=== PATIENT | female | born 2005 | race Caucasian/White ===

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

== ENCOUNTER 2025-04-11 12:11 | Emergency (ER) | payer OTHER, SELFPAY ==
--- NOTE | 2025-04-11 | ECG_ITS ---
Test Reason : chest pain Blood Pressure : */* mmHG Vent. Rate : 80 BPM Atrial Rate : 80 BPM P-R Int : 128 ms QRS Dur : 82 ms QT Int : 360 ms P-R-T Axes : 47 62 42 degrees QTcB Int : 415 ms Normal sinus rhythm with sinus arrhythmia Normal ECG When compared with ECG of 02-Aug-2011 13:15, PREVIOUS ECG IS PRESENT Referred By: Generic ED Physician Electronically Signed By: JOVITA SMITH MD
--- NOTE | ~2025-04-11 | XR_ITS ---
EXAMINATION: XR CHEST CLINICAL INFORMATION: chest pain COMPARISON: None available. TECHNIQUE: 2 views of the chest were obtained. FINDINGS: The cardiac, hilar, and mediastinal contours are normal. The lungs are clear bilaterally. There is no pneumothorax or pleural effusion. There is no focal osseous or soft tissue abnormality. XR/XR chest 2V IMPRESSION: Normal chest. Electronically signed by: Morgan Ramirez MD 04/11/2025 01:18 PM EDT
[2025-04-11 12:16] VITALS: BP 118/64; PULSE 77; RESP 16; TEMP 36.7; O2SAT 100; BMI 39.1
--- NOTE | 2025-04-11 12:24 | ED_ITS ---
HPI - General Adult General Chief complaint: Chest Pain Stated complaint: Chest Pain Tightness X 1 Wk Related Data Previous Rx's ?Medication ?Instructions ?Recorded doxylamine succinate 25 mg tablet 25 mg PO BEDTIME PRN sleep #30 tabs 06/29/22 (Unisom (doxylamine)) pyridoxine (vitamin B6) 25 mg 25 mg PO TID #90 tabs 06/29/22 tablet vitamin with calcium 1 tab PO DAILY 90 days #90 tabs 07/13/22 no.72-iron 27 mg-folic acid 1 mg tablet ( Vitamins Plus Low Iron) aspirin 81 mg chewable tablet 162 mg (2 x 81 mg) PO DAILY #60 07/27/22 (Aspirin Childrens) tabs metronidazole 500 mg tablet 500 mg PO BID 7 days #14 tabs 08/14/22 blood sugar diagnostic (FreeStyle #150 ea 09/29/22 Lite Strips) lancets 28 gauge (FreeStyle #100 ea 09/29/22 Lancets) blood-glucose meter (FreeStyle #1 ea 10/08/22 [place] Lite kit) metronidazole 500 mg tablet 500 mg PO BID 7 days #14 tabs 10/19/22 methylprednisolone 4 mg tablets in 4 mg PO DAILY #21 ea 04/11/25 a dose pack (Medrol (Supa)) Allergies Allergy/AdvReac Type Severity Reaction Status Date / Time No Known Allergies Allergy Verified 04/11/25 17:16 [facility] Past Medical History Medical History Depression Obesity (BMI 30-39.9) Family History Family History Mother Anxiety Father Vasculitis determined by biopsy of nerve Maternal Grandmother Breast cancer Uterine cancer Maternal Grandfather Cardiac arrest Hx of diabetes mellitus Sister Family history of malignant neoplasm of breast in relative diagnosed when older than 45 years of age Social History Social History Household Members: Family Alcohol intake: never Patient Tobacco Use Status: Never used Tobacco Smoked in Last 30 Days: No Use of substances other than those prescribed or required for medical reasons: No Advance Directives: No Advance Directives Information Provided: Yes Do you have a plan to hurt others: No Plan Patient : No Physical Exam ED Vital Signs: BMI result Body Mass Index 39.1 Course Course Course Narrative: This is a rapid medical exam performed by Olayinka Funes NP: Additional HPI, ROS, PE not included below will be deferred to primary provider. Patient is a 20-year-old female presenting with complaint of chest tightness for the past week, worse on left, intermittent. One episode of vomiting this am. Not on OCPs, no recent travel, no recent calf pain/swelling, no known personal or family history of blood clots. Plan: EKG, labs, CXR, viral panel Medical Decision Making Lab Data 04/11/25 12:35 04/11/25 12:35 Labs: Lab Results 04/11/25 Range/Units 12:35 WBC 7.3 (4.8-10.8) X10*3/uL RBC 4.62 (4.20-5.50) X10*6/uL Hgb 11.5 L (12.0-16.0) g/dl Hct 36.1 L (37.0-47.0) % MCV 78.1 L (80.0-98.0) fL MCH 24.9 L (27.0-33.0) pg MCHC 31.9 (31.0-35.0) g/dl RDW 13.9 (11.0-16.0) % Plt Count 342 D (160-400) X10*3/uL MPV 9.7 (9.4-12.3) fL Immature Gran % (Auto) 0.3 (0.0-0.4) % Neut % (Auto) 64.4 (45-73) % Lymph % (Auto) 26.9 (20-40) % [place] % (Auto) 7.0 (2-11) % Eos % (Auto) 1.0 (0-4) % Baso % (Auto) 0.4 (0-2) % Lymph # (Auto) 2.0 (1.2-4.9) X10*3/uL [place] # (Auto) 0.5 (0.1-1.2) X10*3/uL Eos # (Auto) 0.1 (0.0-0.4) X10*3/uL Baso # (Auto) 0.0 (0.0-0.2) X10*3/uL Abs Immat Gran (auto) 0.02 (0.00-0.03) X10*3/uL Absolute Neuts (auto) 4.7 (2.0-8.3) x10*3/uL Absolute Nucleated RBC 0.000 (0.0-0.012) X10*3/uL Nucleated RBC % (auto) 0.0 (0.0-0.2) /100WBC PT 11.6 (10.9-12.4) SEC INR 1.0 (0.9-1.1) Sodium 143 (135-145) mmol/L Potassium 4.0 (3.3-5.1) mmol/L Chloride 108 (96-108) mmol/L Carbon Dioxide 28 (22-29) mmol/L Anion Gap 11 L (12-20) BUN 9 (9-16) mg/dL Creatinine 0.73 (0.5-1.4) mg/dL Estim Creat Clear Calc 183.4 Estimated GFR > 60 Random Glucose 92 (60-115) mg/dL Calcium 9.1 (8.4-10.2) mg/dL Total Bilirubin 0.3 (0.0-1.0) mg/dL AST 22 (5-31) U/L ALT 15 (0-31) U/L Alkaline Phosphatase 86 (39-117) U/L Troponin I High Sens < 2.7 (<3.5-17.0) ng/L Total Protein 7.3 (6.5-8.0) g/dL Albumin 4.0 (3.5-5.0) g/dL Beta HCG, Quant < 2 mIU/mL Influenza Type A (PCR) NEGATIVE (Negative) Influenza Type B (PCR) NEGATIVE (Negative) RSV RNA Qual (PCR) NEGATIVE (Negative) SARS-CoV-2 RNA (RT-PCR) NEGATIVE (Negative) Discharge Plan Discharge Patient Disposition: Left W/O Completing Treatment Prescriptions: No Action metronidazole 500 mg tablet 500 mg PO BID 7 Days Qty: 14 0RF Rx Instructions: Take with food, Avoid alcohol and vinegar products (DME) blood-glucose meter [FreeStyle [place] Lite] Kit See Rx Instructions .ROUTE .MEDSUPPLY Qty: 1 0RF Rx Instructions: use 4x day as directed metronidazole 500 mg tablet 500 mg PO BID 7 Days Qty: 14 0RF methylprednisolone [Medrol (Supa)] 4 mg tablets,dose pack 4 mg PO DAILY Qty: 21 0RF pyridoxine (vitamin B6) 25 mg tablet 25 mg PO TID Qty: 90 1RF Unisom (doxylamine) 25 mg tablet 25 mg PO BEDTIME PRN (Reason: sleep) Qty: 30 1RF Vitamin Plus Low Iron 27 mg iron- 1 mg tablet 1 tab PO DAILY 90 Days Qty: 90 2RF (DME) lancets [FreeStyle Lancets] 28 gauge misc See Rx Instructions .ROUTE .MEDSUPPLY Qty: 100 6RF Rx Instructions: four times as day (DME) FreeStyle Lite Strips Strip See Rx Instructions .ROUTE .MEDSUPPLY Qty: 150 6RF Rx Instructions: four times a day aspirin [Aspirin Childrens] 81 mg tablet,chewable 162 mg PO DAILY Qty: 60 7RF Rx Instructions: start 2 tabs daily at bedtime at 14-16weeks and continue daily until 2 weeks Discharge Date/Time: 04/11/25 15:41
[2025-04-11 12:41] LABS: Basophils Percent Auto 0.4 % (0-2); Eosinophils Absolute Auto 0.1 X10*3/uL (0.0-0.4); Hematocrit 36.1 % (37.0-47.0); Hemoglobin 11.5 g/dl (12.0-16.0); Imm Gran Abs Auto 0.02 X10*3/uL (0.00-0.03); Imm Gran Pct Auto 0.3 % (0.0-0.4); Lymphocytes Percent Auto 26.9 % (20-40); MANUAL DIFF FLAG NO; Mean Corpuscular HGB Conc 31.9 g/dl (31.0-35.0); Mean Corpuscular Hemoglobin 24.9 pg (27.0-33.0); Mean Corpuscular Volume 78.1 fL (80.0-98.0); Mean Platelet Volume 9.7 fL (9.4-12.3); Monocytes Absolute Auto 0.5 X10*3/uL (0.1-1.2); Neutrophils Absolute Auto 4.7 x10*3/uL (2.0-8.3); Neutrophils Percent Auto 64.4 % (45-73); Platelet Count 342 X10*3/uL (160-400); Red Blood Count 4.62 X10*6/uL (4.20-5.50); Red Cell Distribution Width 13.9 % (11.0-16.0); White Blood Count 7.3 X10*3/uL (4.8-10.8)
[2025-04-11 12:49] LABS: Prothrombin Time 11.6 SEC (10.9-12.4)
[2025-04-11 13:01] LABS: Alanine Aminotransferase 15 U/L (0-31); Alkaline Phosphatase 86 U/L (39-117); Anion Gap 11 (12-20); Aspartate Amino Transferase 22 U/L (5-31); Bilirubin Total 0.3 mg/dL (0.0-1.0); Blood Urea Nitrogen 9 mg/dL (9-16); Calcium 9.1 mg/dL (8.4-10.2); Carbon Dioxide 28 mmol/L (22-29); Chloride 108 mmol/L (96-108); Creatinine Clr Calc Pharmacy 183.4; Estimated Glomerular Filt Rate > 60; Glucose Random 92 mg/dL (60-115); Sodium 143 mmol/L (135-145); Total Protein 7.3 g/dL (6.5-8.0)
[2025-04-11 13:03] LABS: HCG Quantitative < 2 mIU/mL; Troponin-I High Sensitivity < 2.7 ng/L (<3.5-17.0)
[2025-04-11 13:29] LABS: Influenza A PCR NEGATIVE (Negative); Influenza B PCR NEGATIVE (Negative); Resp Syncy Virus RNA Qual PCR NEGATIVE (Negative); SARS COV2 PCR INHOUSE NEGATIVE (Negative)
--- OUTSIDE RECORDS SUMMARY | 2025-04-11 15:32 | XMS_ITS | Encounter Summary ---
Author Organization [employer] Address [address] [place] [address] Care Team Providers Care Dye Box Operator Name Role Phone Rita Campbell MD Primary Care Provider [phone] Reason for Visit * Reason Onset Date Comments Hospital Follow-up 04/11/2025 Encounter Details Date Type Department Care Team ([facility] st Contact Info) Description 04/11/2025 Telephone Adult Medicine [address] [phone] Kim Charlton MA Hospital Follow-up Social History Tobacco Use Types Packs/Day Years Used Date Smoking Tobacco: Never Smokeless Tobacco: Never Alcohol Use Standard Drinks/Week Comments No 0 (1 standard drink = 0.6 oz pur e alcohol) Comments Unknown Sex and Gender Information Value Date Recorded Sex Assigned at Not on file Legal Sex Female 4:55 AM EST Gender Identity Not on file Sexual Orientation Not on file documented as of this encounter Progress Notes * Kim Charlton MA - 04/11/2025 2:53 PM EDT Hospital/ER follow up appointment needed Hospital patient was treated at: [facility] Was this only an ER visit or was the patient admitted to the hospital? ER Visit only Date of visit if ER visit only: 04/11/25 If patient was admitted what was the date of discharge? Reason/diagnosis for visit or stay: CHEST PAIN DUE TO VAPING. When was the patient told to follow up? [facility] Was visit or stay related to an injury? If yes, what was the date of injury (DOI)? No If yes, was the injury due to: Not 3rd constitution party related documented in this encounter Plan of Treatment Upcoming Encounters Date Type Department Care Team (Late st Contact Info) Description 06/22/2025 11:00 AM EDT Office Visit Adult Medicine [address] [phone] Rita Campbell MD [address] [place] [address] documented as of this encounter Visit Diagnoses Not on filedocumented in this encounter Care Teams Dye Box Operator Relationship Specialty Start Date End Date Rita Campbell MD [address] [place] [id number] PCP - General 12/06/23 documented as of this encounter
--- OUTSIDE RECORDS SUMMARY | 2025-04-11 15:32 | XMS_ITS | Clinical Summary ---
Author Organization [facility] Address [address] [place] [phone] Phone Care Team Providers Care Correspondence Dictator Name Role Phone Unavailable Primary Care Provider Unavailabl e Immunizations Immunization Administration Dates Next Due DTaP 5 09/16/2004,2003,2003 ,2003 Hep B, ped/adol 2003,2003,2003 Hib (HbOC) 07/02/2004 Hib (PRP-T) 2003,2003,2003 IPV 2003,2003,2003 MMR 03/24/2004 Pneumococcal Conjugate 09/16/2004,2003,,2003 Varicella 03/24/2004 Family History Relation Name Status Comments Father Alive Father: Alive a nd well Maternal Grandfather Materna l grandfather: Diabetes mellitus, heart attack, Maternal Grandmother Materna l grandmother: Cancer -breast Mother Alive Mother: Alive a nd well Paternal Grandmother Paterna l grandmother: HIV, Sister Alive Sister: Alive a nd well Social History Tobacco Use Types Packs/Day Years Used Date Smoking Tobacco: Never Assessed Comments Unknown Sex and Gender Information Value Date Recorded Sex Assigned at Not on file Legal Sex Female 4:12 PM EDT Gender Identity Not on file Sexual Orientation Not on file Plan of Treatment Health Maintenance Due Date Last Done Comments IPV Vaccines (4 of 4 - 4-dose series) 2007 2003, 2003, 2003 Varicella Vaccines (2 of 2 - 2-dose childhood series) 2007 03/24/2004 DTaP,Tdap,and Td Vaccines (5 - Tdap) 2014 09/16/2004, 2003, 2003, Additional history exists HPV Vaccines (1 - 3-dose series) 2018 Men B Vaccine (1 of 2 - Standard) 2019 Influenza Vaccines (#1) 2024 COVID-19 Vaccine ( - 2023-) 07/30/2024 Hepatitis B Vaccines Completed 2003, 2003, 2003 MMR Vaccines Completed 03/24/2004 HIB Vaccines Completed 07/02/2004, 08/30, 2003, Additional history exists Pneumococcal Vaccine Completed 09/16/2004, 2003, 2003, Additional history exists Hepatitis A Vaccines Aged Out No long er eligible based on patient's age to complete this topic Meningococcal Vaccine Aged Out No reid reggie eligible based on patient's age to complete this topic
--- OUTSIDE RECORDS SUMMARY | 2025-04-11 15:32 | XMS_ITS | Clinical Summary ---
Author Organization [address] Address [address] [place] [phone] Phone Care Team Providers Care Workday Manager Name Role Phone Rita Campbell MD Primary Care Provider [phone] Allergies No known active allergies Medications albuterol HFA (PROAIR HFA ; PROVENTIL HFA ; VENTOLIN HFA) 90 mcg/actuation inhaler INHALE 2 PUFFS INTO THE LUNGS EVERY 4 HOURS NEEDED FOR COUGH, WHEEZING OR SHORTNESS OF BREATH. 9 Active buPROPion (WELLBUTRIN) 75 mg tablet Take 1 tablet (75 mg total) by mouth. 9 Active cetirizine (ZyrTEC) 10 mg tablet Take 1 tablet (10 mg total) by mouth 1 (one) time each day. 1 Active desogestreL-eth inyl estradioL (Apri) 0.15-0.03 mg per tablet Take 1 tablet by mouth 1 (one) time each day. 2 Active ferrous sulfate 325 mg (65 mg elemental iron) tablet Take 1 tablet (325 mg total) by mouth 1 (one) time each day. 0 Active fluticasone furoate (Arnuity Ellipta) 100 mcg/actuation blister with device inhaler Inhale 1 puff. 9 Active fluticasone propionate (FLONASE) 50 mcg/actuation nasal spray Administer 1 spray into affected nostril(s). 1 Active reservoir inhalation (INSPIREASE) device USE WITH INHALER 2 Active sertraline (ZOLOFT) 50 mg tablet TAKE 1 TABLET BY MOUTH EVERY DAY 90 tablet 1 5 Active cyclobenzaprine (FLEXERIL) 10 mg tablet Take 1 tablet (10 mg total) by mouth at bedtime as needed for muscle spasms. 30 tablet 5 Active naproxen (EC NAPROSYN) 375 mg EC tablet Take 1 tablet (375 mg total) by mouth 2 (two) times a day. 60 tablet 5 Active Active Problems Problem Noted Date Diagnosed Date Right ureteral calculus 05/23/2019 Overview (02/04/2024): 05/15/19: seen at [facility] pelvis and abdomen showed 0.3 cm calculus right pelvis given marcobid for proteus UTI and follow up with urology 07/17: renal ultrasound no hydronephrosis and no obvious sign of stone. 24 hour urine collection and nephrology Elevated cholesterol 02/26/2019 Depression 06/09/2018 Overview (02/04/2024): Therapist Chaya Morales, [facility] [phone] 09/16: therapist Brigida Dean [facility] Behavior problem in child 04/01/2017 Orthostatic syncope 06/29/2013 Overview (02/04/2024): seen by Dr. Sanchez, cardiology Seasonal allergies 03/18/2012 Overview (02/04/2024): Last Assessment & Plan: Will start on Claritin and Flonase Encounters Date Type Department Care Team Description 04/11/2025 Telephone Adult Medicine [address] [phone] Kim [facility] Follow-up 01/26/2025 9:30 AM EST Office Visit Adult Medicine [address] [phone] Seamus Hanson MD Lumbosacral strain, initial encounter (Primary Dx) 01/26/2025 Telephone Adult Medicine [address] [phone] Rita Campbell MD Back Pain from Last 3 Months Immunizations Name Administration Dates Next Due DTaP (Infanrix) 6wks to less than 7yo ,09/16/2004,2003,05/28,2003 DTaP 5 pertussis antigens, D iptheria Tetanus acellular pertussis (Daptacel) 6wks to less than 7yo 09/16/2004,2003,2003,05/28 XMsR-BAF-IUM (Pentacel) 2mo to less than 5yo 09/16/2004,2003,2003,05/28 HPV 9-valent (Gardisil) 9yo to less than 46yo 04/01/2017,01/23/2016,10/21/2015 Hepatitis B Pediatric (Enger ix B; Recombivax HB) to less than 20 yo 2003,2003,2003 HiB PRP-T conjugate (Acthib, Hiberix) 6wks and older 2003,2003,2003 Hib (HbOC) 07/02/2004 IPV Inactivated polio (Ipol) 6wks and older 07/04/2008,2003,2003,05/28 Influenza trivalent, with pr eservative (Fluzone; Afluria) 6mo and older 08/19/2020,09/21/2018,09/11/2013,08/08,07/25/2010,11/26/2009 MMR, measles mumps and rubel la Live (Priorix; M-M-R II) 12mo and older 06/29/2007,03/24/2004 Meningococcal MCV4P 09/12/2019,08/24/2014 Pneumococcal Conjugate Vacci ne, 7 Valent 09/16/2004,2003,2003,05/28 Tdap Tetanus diptheria acell ular pertussis (Boostrix; Adacel) 7yo and older 08/24/2014 Varicella live (Varivax) 12m o and older 06/29/2007,03/24/2004 Surgical History Surgery Date Site/Laterality Comments MULTIPLE TOOTH EXTRACTIONS 11/29/2007 PROCEDURE: HISTORICAL DENTAL EXTRACTION TONSILLECTOMY 01/27/2011 PROCEDURE: HISTORICAL TONSILLECTOMY CHOLECYSTECTOMY 01/2024 PROCEDURE: HISTORICAL CHOLECYSTECTOMY Medical History Medical History Date Comments Overweight(278.02) DX:Overweight (278.02) Tonsillar hypertrophy DX:Tonsill ar hypertrophy; COMMENT: seen by ENT, observe for now, no apnea, seen again 02/06 tonsillectomy Streptococcal pharyngitis 02/05, 01/09 * 2 DX:Str eptococcal pharyngitis Greenstick fracture of lower leg 02/24/10 DX:Greenstick fracture of lower leg; COMMENT: greenstick fracture left wrist Syncopal episodes 08/09, 07/11 * 2 DX:Syncopal ep isodes; COMMENT: neg CT scan Disturbance of sleep 07/08 DX:Disturba nce of sleep Unspecified family circumstance 07/08 DX:Unspecified family circumstance; COMMENT: case closed Orthostatic syncope 06/2013 DX:Orthostat ic syncope; COMMENT: seen by Dr. Sanchez, cardiology Childhood obesity 03/20/2013 DX:Childhood o besity; COMMENT: Component Value Date CHOL 206 08/24/2014 Family History Medical History Relation Name Comments Nephrolithiasis Father Other: polyarteritis nodosum Father Diabetes Maternal Grandfather Breast cancer Maternal Grandmother Hypertension Maternal Grandmother Seizures Mother Asthma Other Maternal Side Relation Name Status Comments Brother Alive Father Alive Maternal Grandfather Maternal Grandmother Mother Alive Other Sister Alive Social History Tobacco Use Types Packs/Day Years Used Date Smoking Tobacco: Never Smokeless Tobacco: Never Alcohol Use Standard Drinks/Week Comments No 0 (1 standard drink = 0.6 oz pur e alcohol) Comments Unknown Sex and Gender Information Value Date Recorded Sex Assigned at Not on file Legal Sex Female 4:55 AM EST Gender Identity Not on file Sexual Orientation Not on file Obstetrics History Last Filed Vital Signs Vital Sign Reading Time Taken Comments Blood Pressure 112/74 01/26/2025 9:34 AM EST Pulse 80 01/26/2025 9:34 AM EST Temperature 36.4 ??C (97.6 ??F) 01/26/2025 9:34 AM ES T Respiratory Rate 16 01/26/2025 9:34 AM EST Oxygen Saturation 98% 01/26/2025 9:34 AM EST Inhaled Oxygen Concentration - - Weight 132 kg (290 lb) 01/26/2025 9:34 AM EST Height 182.2 cm (5' 11.75 ) 01/26/2025 9:[address] Body Mass Index 39.61 01/26/2025 9:34 AM EST Plan of Treatment Upcoming Encounters Date Type Department Care Team (Late st Contact Info) Description 06/22/2025 11:00 AM EDT Office Visit Adult Medicine [address] [phone] Rita Campbell MD [address] [place] [id number] Health Maintenance Due Date Last Done Comments Meningococcal B Vaccine (1 of 2 - Standard) 2019 Gonorrhea/Chlamydia Screening 09/12/2020 09/12/2019 Depression Screening 11/01/2022 09/14/2019 HIV Screening 11/01/2022 Hepatitis C Screening 11/01/2022 Social Influencers of Health Screening 11/01/2022 09/12/2019 Cervical Cancer Screening: Pap Smear 2024 COVID-19 Vaccine ( season) 2024 01/12/2023, 04/04/2021, 03/21/2021 Hypertension/CHF/CAD Annual BMP Blood Test 06/23/2025 06/23/2024 Cholesterol Screening (Lipid Panel) 06/23/2029 06/23/2024, 06/14/2018 DTaP,Tdap,and Td Vaccines (8 - Td or Tdap) 10/29/2032 10/29/2022, 08/24/2014, 07/04/2008, Additional history exists Hepatitis B Vaccines Completed 2003, 2003, 2003 HIB Vaccines Completed 09/16/2004, 08/29, 07/02/2004, Additional history exists Pneumococcal Vaccine: Pediatrics (0 to 5 Years) and At-Risk Patients (6 to 64 Years) Completed 09/16/2004, 2003, 2003, Additional history exists MMR Vaccines Completed 06/29/2007, 03/24/2004 Varicella Vaccines Completed 06/29/2007, 03/24/2004 IPV Vaccines Completed 07/04/2008, 08/29, 2003, Additional history exists HPV Vaccines Completed 04/01/2017, 02/2017, 01/23/2016, Additional history exists Meningococcal ACWY Vaccine Completed 09/12/2019, Influenza Vaccine Completed 08/23/2024, , 08/19/2020, Additional history exists Hepatitis A Vaccines Aged Out No long er eligible based on patient's age to complete this topic RSV Immunization Patients Under 20 months Aged Out No longer eligible based on patient's age to complete this topic Insurance [facility] Care Teams Workday Manager Relationship Specialty Start Date End Date Rita Campbell MD [address] [place] [phone] PCP - General 12/06/23
--- OUTSIDE RECORDS SUMMARY | 2025-04-11 15:32 | XMS_ITS | Encounter Summary ---
Author Organization [facility] Address [address] [place] [phone] Phone Care Team Providers Care Ict Support Technicians Name Role Phone Unavailable Primary Care Provider Unavailabl e Encounter Details Date Type Department Care Team (Late st Contact Info) Description 07/15/2017 Conversion Encounter [facility] - [address] [phone] Social History Tobacco Use Types Packs/Day Years Used Date Smoking Tobacco: Never Assessed Comments Unknown Sex and Gender Information Value Date Recorded Sex Assigned at Not on file Legal Sex Female 4:12 PM EDT Gender Identity Not on file Sexual Orientation Not on file documented as of this encounter Plan of Treatment Not on file documented as of this encounter Visit Diagnoses Not on filedocumented in this encounter
== END 2025-04-11 15:41 | disposition left against medical advice (07) ==
PROVIDERS: Registered Nurse Emergency; Emergency Provider Emergency Medicine
DX: R07.89 Other chest pain (principal); Z79.899 Other long term (current) drug therapy; Z03.818 Encounter for observation for suspected exposure to other biological agents ruled out
CPT/HCPCS: 0241U; 71046; 80053; 84484; 84702; 85025; 85610; 93005; 99283

== ENCOUNTER → 2025-04-11 12:16 | Outpatient (BNV) | payer OTHER, SELFPAY | PROVIDERS: Emergency Provider Emergency Medicine; Visit Provider Internal Medicine Cardiovascular Disease | DX: R07.9 Chest pain, unspecified (principal) | CPT/HCPCS: 93010 ==

== ENCOUNTER → 2025-04-11 12:25 | Outpatient (BNV) | payer OTHER, SELFPAY | PROVIDERS: Visit Provider Radiology Diagnostic Radiology | DX: R07.89 Other chest pain (principal) | CPT/HCPCS: 71046 ==

== ENCOUNTER 2025-04-11 16:59 | Emergency (ER) | payer OTHER, SELFPAY ==
--- NOTE | 2025-04-11 17:02 | ECG_ITS ---
Test Reason : CHEST PAIN Blood Pressure : */* mmHG Vent. Rate : 79 BPM Atrial Rate : 79 BPM P-R Int : 140 ms QRS Dur : 86 ms QT Int : 364 ms P-R-T Axes : 47 57 26 degrees QTcB Int : 417 ms Sinus rhythm with marked sinus arrhythmia Otherwise normal ECG When compared with ECG of 11-Apr-2025 12:16, No significant change was found Referred By: Bhavya Funes Electronically Signed By: JOVITA SMITH MD
[2025-04-11 17:11] VITALS: BP 135/64; PULSE 69; RESP 19; TEMP 36.6; O2SAT 99; BMI 38.9
--- NOTE | 2025-04-11 17:14 | ED_ITS ---
HPI - Chest Pain General Chief Complaint: Chest Pain Stated Complaint: Chest pain/here earlier today but left Time Seen by Provider: 04/11/25 18:01 History of Present Illness ED Provider: HPI narrative: 20-year-old female without significant medical problems, she does vape, was seen in emergency department earlier today with chest pain has been going on for the past 5 days, states worse when she takes a deep breath it is left-sided nonradiating not associated nausea vomiting or diaphoresis, she had full workup when home in still having chest pain symptoms speaking concerned and came back to the ER. No fevers or chills reported no cough no hemoptysis I did not elicit any PE risk factors. She is here with her . Related Data Previous Rx's ?Medication ?Instructions ?Recorded doxylamine succinate 25 mg tablet 25 mg PO BEDTIME PRN sleep #30 tabs 06/29/22 (Unisom (doxylamine)) pyridoxine (vitamin B6) 25 mg 25 mg PO TID #90 tabs 06/29/22 tablet vitamin with calcium 1 tab PO DAILY 90 days #90 tabs 07/13/22 no.72-iron 27 mg-folic acid 1 mg tablet ( Vitamins Plus Low Iron) aspirin 81 mg chewable tablet 162 mg (2 x 81 mg) PO DAILY #60 07/27/22 (Aspirin Childrens) tabs metronidazole 500 mg tablet 500 mg PO BID 7 days #14 tabs 08/14/22 blood sugar diagnostic (FreeStyle #150 ea 09/29/22 Lite Strips) lancets 28 gauge (FreeStyle #100 ea 09/29/22 Lancets) blood-glucose meter (FreeStyle #1 ea 10/08/22 [place] Lite kit) metronidazole 500 mg tablet 500 mg PO BID 7 days #14 tabs 10/19/22 methylprednisolone 4 mg tablets in 4 mg PO DAILY #21 ea 04/11/25 a dose pack (Medrol (Supa)) Allergies Allergy/AdvReac Type Severity Reaction Status Date / Time No Known Allergies Allergy Verified 04/11/25 17:16 Review of Systems Constitutional: Constitutional: Reports as per [facility] Past Medical History Medical History Depression Obesity (BMI 30-39.9) Family History Family History Mother Anxiety Father Vasculitis determined by biopsy of nerve Maternal Grandmother Breast cancer Uterine cancer Maternal Grandfather Cardiac arrest Hx of diabetes mellitus Sister Family history of malignant neoplasm of breast in relative diagnosed when older than 45 years of age Social History Social History Household Members: Family Alcohol intake: never Patient Tobacco Use Status: Never used Tobacco Smoked in Last 30 Days: No Use of substances other than those prescribed or required for medical reasons: No Advance Directives: No Advance Directives Information Provided: Yes Do you have a plan to hurt others: No Plan Patient : No Physical Exam Vital Signs: Vital Signs: Last Vital Signs Temp 98 F 04/11/25 17:11 Pulse 69 04/11/25 17:11 Resp 19 04/11/25 17:11 BP 135/64 04/11/25 17:11 Pulse Ox 99 04/11/25 17:11 O2 Del Method Room Air 04/11/25 17:11 BMI result Body Mass Index 38.9 Const: Other: * Gen: ?Overall well-appearing patient * Neck: Supple, no LAD * CV: RRR, no obvious murmurs appreciated * Resp: ?No wheezing rales rhonchi no stridor moving air well * Abd: ?Bowel sounds are present, no tenderness no rebound no rigidity * MSK: FROM, strength 5/5 all extremities, no edema of the lower extremities noted * Skin: Warm, dry, intact, * Neuro: ?Alert and oriented x3, moving upper and lower extremities symmetrically, no obvious facial asymmetry noted Course Course Course Narrative: This is a rapid medical exam performed by Olayinka Funes NP: Additional HPI, ROS, PE not included below will be deferred to primary provider. Patient is a 20-year-old female presenting with complaint of chest tightness for the past week, worse on left, intermittent. One episode of vomiting this am. Not on OCPs, no recent travel, no recent calf pain/swelling, no known personal or family history of blood clots. Patient was in the department earlier today but left due to feeling better . She states she went home and started to feel worse prompting her to return to the ED. Plan: EKG Medical Decision Making Medical Decision Making [facility] Narrative: I reviewed patient's prior workup she has had no evidence for ACS, unremarkable chest x-ray without pneumonia, pneumothorax, or subcutaneous emphysema to suspect Boerhaave syndrome, her blood work and cardiac enzymes have been reassuring, we did discuss vaping, I did discuss with her that this may be costochondritis, I did not feel that this is related to aortic dissection as this is going for the past 1 week she is not significantly hypertensive pulses equal bilateral upper extremities, I will obtain a D-dimer as she may have a pleuritic component to her symptoms, after that anticipate discharging on anti- inflammatories or few days of steroids. Lab Data [facility] Lab Attestation statement: I reviewed the patient's lab results. (I reviewed patient's prior workup which included blood work, chest x-ray EKG) Labs: Lab Results 04/11/25 Range/Units 19:08 D-Dimer High Sensitivty < 150 NG/ML Independent Interpretation I performed an independent interpretation of an: EKG (79 BPM, otherwise normal ECG without dysrhythmia, AV vicenta blocks or ST-T changes to suspect underlying ACS, my independent interpretation) Discharge Plan Discharge Clinical Impression: Chest pain, precordial Patient Disposition: Home, Self-Care Additional Instructions: Diagnosis and Initial Evaluation: You have been evaluated in the Emergency Department (ED) for chest pain. Based on your clinical assessment, electrocardiogram (ECG), and high-sensitivity cardiac troponin (hs-cTn) levels, you have been classified as low-risk for acute coronary syndrome (ACS) and myocardial infarction (DC). This means that your likelihood of having a heart attack or other serious heart condition in the next 30 days is very low. And on your return visit I obtained a D-dimer that was completely unremarkable which essentially excludes a blood clot, as I discussed with the suspect his symptoms are related to costochondritis, please quit vaping as you may be developing what is called pleurisy or formation of the pleural lining from vaping, I am going to start you on steroids, 1st dose in the ER, continue steroids starting tomorrow, any other issues concerns, back to the ER otherwise follow-up with your PCP, see my general discharge instructions as below Follow-Up Care: ? Primary Care Provider (PCP) or Net Developer Architect: It is important to follow up with your primary care provider or chief operating engineer within the next 14 to 30 days. This follow-up is crucial to ensure that any underlying conditions are managed appropriately and to discuss any further testing that may be needed. ? Notification: If you have an established PCP or chief operating engineer, they have been notified of your ED visit to facilitate continuity of care. Self-Care and Monitoring: ? Medications: Continue taking any prescribed medications as directed. If you have been given new medications, ensure you understand how and when to take them. ? Activity: Resume normal activities as tolerated. Avoid strenuous activities until you have discussed them with your healthcare provider. ? Diet: Maintain a heart-healthy diet, low in saturated fats, cholesterol, and sodium. Red Flags: Seek immediate medical attention if you experience any of the following: ? New or worsening chest pain ? Shortness of breath ? Dizziness or fainting ? Pain radiating to your arm, neck, or jaw ? Sweating, nausea, or vomiting Additional Testing: In some cases, outpatient testing such as a stress test or imaging may be recommended to further evaluate your heart health. Your follow-up provider will discuss this with you if necessary. Mental Health: Anxiety and stress can contribute to chest pain. Consider discussing any concerns with your healthcare provider, who may recommend screening for anxiety or depression and appropriate management strategies. Contact Information: If you have any questions or concerns before your follow-up appointment, please contact your healthcare provider or the ED where you were evaluated. Summary: You have been discharged from the ED with a low risk of serious heart conditions. Follow the instructions above, attend your follow-up appointments, and seek immediate care if you experience any red flags. Prescriptions: New methylprednisolone [Medrol (Supa)] 4 mg tablets,dose pack 4 mg PO DAILY Qty: 21 0RF No Action metronidazole 500 mg tablet 500 mg PO BID 7 Days Qty: 14 0RF Rx Instructions: Take with food, Avoid alcohol and vinegar products (DME) blood-glucose meter [FreeStyle [place] Lite] Kit See Rx Instructions .ROUTE .MEDSUPPLY Qty: 1 0RF Rx Instructions: use 4x day as directed metronidazole 500 mg tablet 500 mg PO BID 7 Days Qty: 14 0RF pyridoxine (vitamin B6) 25 mg tablet 25 mg PO TID Qty: 90 1RF Unisom (doxylamine) 25 mg tablet 25 mg PO BEDTIME PRN (Reason: sleep) Qty: 30 1RF Vitamin Plus Low Iron 27 mg iron- 1 mg tablet 1 tab PO DAILY 90 Days Qty: 90 2RF (DME) lancets [FreeStyle Lancets] 28 gauge misc See Rx Instructions .ROUTE .MEDSUPPLY Qty: 100 6RF Rx Instructions: four times as day (DME) FreeStyle Lite Strips Strip See Rx Instructions .ROUTE .MEDSUPPLY Qty: 150 6RF Rx Instructions: four times a day aspirin [Aspirin Childrens] 81 mg tablet,chewable 162 mg PO DAILY Qty: 60 7RF Rx Instructions: start 2 tabs daily at bedtime at 14-16weeks and continue daily until 2 weeks Print Language: East Timorese
--- OUTSIDE RECORDS SUMMARY | 2025-04-11 18:14 | XMS_ITS | Encounter Summary ---
Author Organization [facility] Address [address] [facility] [place] [address] Care Team Providers Care Chemist Biological Name Role Phone Jewell Chacon MD Primary Care Provider Unavailab Rita Rice MD Primary Care Provider [phone] Reason for Visit * Reason Onset Date Comments Michael Smith 07/09/2013 Encounter Details Date Type Department Care Team Description 07/09/2013 Telephone [facility]s Ur[facility] [address] [facility] [place] [address] Jewell Chacon MD Faintsreedhar Spell Social History Tobacco Use Types Packs/Day Years Used Date Smoking Tobacco: Never Smokeless Tobacco: Never Comments:mom and dad smoke o utside Alcohol Use Standard Drinks/Week Comments Not Asked 0 (1 standard drink = 0.6 oz pur e alcohol) Sex Assigned at Date Recorded Not on file documented as of this encounter Miscellaneous Notes * Telephone Encounter - Aylin FoleyPNicholNNichol - 07/09/2013 3:12 PM EDT Left message on answering machine call susy, was sent to er by bsr * Telephone Encounter - Emily Grace - 07/09/2013 2:58 PM EDT Symptoms patient is presenting: passed out twice, lips are blue, pupils are dilated How long has patient had these symptoms?: just happened PCP: Jewell Chacon [facility] Plan: FFS HMO $0 [place] [id number] Product Type: MEDICAID RISK PATIENT WAS SENT TO ER documented in this encounter Plan of Treatment Not on file documented as of this encounter Visit Diagnoses Not on filedocumented in this encounter Care Teams Chemist Biological Relationship Specialty Start Date End Date Jewell Chacon MD PCP - General 11/09/06 12/05/23 Rita Campbell MD [address] [place] [id number] PCP - General Internal Medicine 12/06/23 documented as of this encounter
--- OUTSIDE RECORDS SUMMARY | 2025-04-11 18:14 | XMS_ITS | Encounter Summary ---
Author Organization [facility] Address [address] [facility] [place] [address] Care Team Providers Care Flash Ranging Crewmember Name Role Phone Jewell Chacon MD Primary Care Provider Unavailab Rita Rice MD Primary Care Provider [phone] Reason for Visit * Reason Comments E-prescribe Rx Request Encounter Details Date Type Department Care Team Description 03/29/2018 Refill Pediatrics - [place] [address] [place] [address] Nunu Middleton NP [address] [place] [address] E-prescribe Rx Request Social History Tobacco Use Types Packs/Day Years Used Date Smoking Tobacco: Never Smokeless Tobacco: Never Comments:mom and dad smoke o utside Alcohol Use Standard Drinks/Week Comments No 0 (1 standard drink = 0.6 oz pur e alcohol) Sex Assigned at Date Recorded Not on file documented as of this encounter Miscellaneous Notes * Telephone Encounter - Kay Hoffman - 03/29/2018 8:29 AM EDT When was patients last PE/WCC? 04/01/17 When is patients next PE/WCC scheduled? 04/04/18 Jewell Chacon RX REQUEST WHEN MED IS ON THE LIST: All of the medications requested were on the CURRENT MEDS list Did you check the Pharmacy information above?: YES Indicate how soon the patient needs the script: SHARON Patient would like script to be: E-PRESCRIBED/FAXED TO PHARMACY Is the doctor here today?: NO Can the message wait until the doctor returns?: NO Has the patient been told that the prescription will not be filled until the end of the day? NO Jewell Chacon [place] / [place] / Product Type: [place]ID [id number] documented in this encounter Plan of Treatment Not on file documented as of this encounter Visit Diagnoses Not on filedocumented in this encounter Care Teams Flash Ranging Crewmember Relationship Specialty Start Date End Date Jewell Chacon MD PCP - General 11/09/06 12/05/23 Rita Campbell MD [address] [place] [id number] PCP - General Internal Medicine 12/06/23 documented as of this encounter
--- OUTSIDE RECORDS SUMMARY | 2025-04-11 18:14 | XMS_ITS | Encounter Summary ---
Author Organization [facility] Address [address] [place] [address] Care Team Providers Care Wood Barker Name Role Phone Rita Campbell MD Primary Care Provider [phone] Reason for Visit * Reason Onset Date Comments Hospital Follow-up 04/11/2025 Encounter Details Date Type Department Care Team (Late st Contact Info) Description 04/11/2025 Telephone Adult Medicine [address] [address] [place] Hospital Follow-up Social History Tobacco Use [...] as of this encounter Progress Notes * Sara Robertson RN - 04/11/2025 4:07 PM EDT Called pt er fu for 04/17 with careteam * Sri Fournier - 04/11/2025 3:53 PM EDT Patient returning phone call * Sara Robertson RN - 04/11/2025 3:45 PM EDT Called pt left vm to return call this is an er fu only * Kim Charlton MA - 04/11/2025 2:53 PM EDT Hospital/ER follow up appointment needed Hospital patient was treated at: [facility] Was this only an ER visit [...] was the injury due to: Not 3rd democrat related documented in this encounter Plan of Treatment Upcoming Encounters Date Type Department Care Team (Late st Contact Info) Description 04/17/2025 10:00 AM EDT Office Visit Adult Medicine [address] [phone] Hayden Mayer PA [address] [place] [address] 06/22/2025 11:00 AM EDT Office Visit Adult [address] [phone] Rita Campbell MD [address] [place] [address] documented as of this encounter Visit Diagnoses Not on filedocumented in this encounter Care Teams Wood Barker Relationship Specialty Start Date End Date Rita Campbell MD [address] [place] [address] PCP - General 12/06/23 documented as of this encounter
--- OUTSIDE RECORDS SUMMARY | 2025-04-11 18:14 | XMS_ITS | Clinical Summary ---
Author Organization [facility] Address [address] [place] [address] Phone Care Team Providers Care Food Specialist Name Role Phone Unavailable Primary Care Provider [...]
--- OUTSIDE RECORDS SUMMARY | 2025-04-11 18:14 | XMS_ITS | Encounter Summary ---
Author Organization [facility] Address [address] [place] [address] Phone Care Team Providers Care Fringing Machine Operator Name Role Phone Unavailable Primary Care Provider Unavailabl e Encounter Details Date Type Department Care Team (Late st Contact Info) Description 07/15/2017 Conversion Encounter [facility] - [address] [address] Social History Tobacco Use Types Packs/Day Years [...]
--- OUTSIDE RECORDS SUMMARY | 2025-04-11 18:14 | XMS_ITS | Clinical Summary ---
Author Organization [address] Address [address] [place] [phone] Phone Care Team Providers Care Information Systems Auditor Name Role Phone Rita Campbell MD Primary Care Provider [phone] Allergies No known active allergies Medications albuterol [...] calculus 05/23/2019 Overview (02/04/2024): 05/15/19: seen at [facility] pelvis and abdomen showed 0.3 cm calculus right pelvis given marcobid for proteus UTI and follow up with urology 07/17: renal ultrasound no hydronephrosis and no obvious sign of stone. 24 hour urine collection and nephrology Elevated cholesterol 02/26/2019 Depression 06/09/2018 Overview (02/04/2024): Therapist Chaya Morales, [facility] [phone] 09/16: therapist Brigida Dean [facility] Behavior problem in child 04/01/2017 Orthostatic syncope 06/29/2013 Overview (02/04/2024): seen by Dr. Sanchez, cardiology Seasonal allergies 03/18/2012 Overview (02/04/2024): Last Assessment & Plan: Will start on Claritin and Flonase Encounters Date Type Department Care Team Description 04/11/2025 Telephone Adult Medicine [address] [phone] Kim Charlton [place] Hospital Follow-up 01/26/2025 9:30 AM EST Office Visit Adult Medicine [address] [phone] Seamus Hanson MD Lumbosacral strain, initial encounter (Primary Dx) 01/26/2025 Telephone Adult Medicine [address] [phone] Rita Campbell MD Back Pain from Last 3 Months Immunizations Name Administration Dates Next Due DTaP (Infanrix) 6wks to less than 7yo ,09/16/2004,2003,05/28,2003 DTaP 5 pertussis antigens, D iptheria Tetanus acellular pertussis (Daptacel) 6wks to less than 7yo 09/16/2004,2003,2003,05/28 [id number] (Pentacel) 2mo to less than 5yo 09/16/2004,2003,2003,05/28 [...] 10:00 AM EDT Office Visit Adult Medicine [address] [phone] Hayden Mayer PA [address] [place] [address] 06/22/2025 11:00 AM EDT Office Visit Adult [address] [phone] Rita Campbell MD [address] [place] [address] Health Maintenance Due Date Last Done Comments [...] patient's age to complete this topic Insurance [facility] Care Teams Information Systems Auditor Relationship Specialty Start Date End Date Rita Campbell MD [address] [place] [address] [facility] - General 12/06/23
--- OUTSIDE RECORDS SUMMARY | 2025-04-11 18:14 | XMS_ITS | Encounter Summary ---
Author Organization [facility] Address [address] [facility] [place] [address] Care Team Providers Care Director Of Analytical Development Name Role Phone Jewell Chacon MD Primary Care Provider Unavailab Rita Rice MD Primary Care Provider [phone] Reason for Visit * Reason Comments E-prescribe Rx Request Encounter Details Date Type Department Care Team Description 07/15/2015 Refill Pediatrics - [address] [address] Jewell Chacon MD E-prescribe Rx Request Social History Tobacco Use Types Packs/Day Years Used Date Smoking Tobacco: Never Smokeless Tobacco: Never Comments:mom and dad smoke o utside Alcohol Use Standard Drinks/Week Comments Not Asked 0 (1 standard drink = 0.6 oz pur e alcohol) Sex Assigned at Date Recorded Not on file documented as of this encounter Miscellaneous Notes * Telephone Encounter - Xiomy Long L.P.N. - 07/15/2015 9:13 AM EDT PCP out of office. * Telephone Encounter - Sydnee Mar - 07/15/2015 8:14 AM EDT When was patients last PE/WCC? 08/24/14 When is patients next PE/WCC scheduled? Patient due in July - pt on wait list to call Jewell Chacon RX REQUEST WHEN MED IS ON THE LIST: All of the medications requested were on the CURRENT MEDS list Did you check the Pharmacy information above?: NO Indicate how soon the patient needs the script: BY THE END OF THE DAY Patient would like script to be: E-PRESCRIBED/FAXED TO PHARMACY Is the doctor here today?: NO Can the message wait until the doctor returns?: NO Has the patient been told that the prescription will not be filled until the end of the day? NO Jewell Chacon Payor: [employer] FFS / Plan: FFS HMO $0 [place] [id number] / Product Type: MEDICAID RISK documented in this encounter Plan of Treatment Not on file documented as of this encounter Visit Diagnoses Not on filedocumented in this encounter Care Teams Director Of Analytical Development Relationship Specialty Start Date End Date Jewell Chacon MD PCP - General 11/09/06 12/05/23 Rita Campbell MD [address] [place] [address] PCP - General Internal Medicine 12/06/23 documented as of this encounter
--- OUTSIDE RECORDS SUMMARY | 2025-04-11 18:14 | XMS_ITS | Encounter Summary ---
Author Organization [facility] Address [address] [place] [address] Care Team Providers Care Fluid Designer Name Role Phone Jewell Chacon MD Primary Care Provider Unavailab Rita Rice MD Primary Care Provider [phone] Encounter Details Date Type Department Care Team Description 08/13/2022 Telephone Pediatrics - [address] [address] Nunu Middleton NP [address] [place] [address] Social History Tobacco Use Types Packs/Day Years Used Date Smoking Tobacco: Never Smokeless Tobacco: Never Comments:mom and dad smoke o utside Alcohol Use Standard Drinks/Week Comments No 0 (1 standard drink = 0.6 oz pur e alcohol) Sex Assigned at Date Recorded Not on file documented as of this encounter Miscellaneous Notes * Telephone Encounter - Nunu Middleton NP - 08/14/2022 7:39 AM EDT Notes are from [facility] seen by Irina Santos CNM G1 P 0 EDC 02/02/23 Had some vaginal bleedign due to polyps. OB will FU * Telephone Encounter - Kirstie Briseno.P.NNichol - 08/13/2022 5:37 PM EDT Receive report for [facility] dated 08/11/22. Attempted to reach patient voice mail full Report placed at Nunu Middleton DRIVER ENGINEER for review. documented in this encounter Plan of Treatment Not on file documented as of this encounter Visit Diagnoses Not on filedocumented in this encounter Care Teams Fluid Designer Relationship Specialty Start Date End Date Jewell Chacon MD PCP - General 11/09/06 12/05/23 Rita Campbell MD [address] [place] [address] PCP - General Internal Medicine 12/06/23 documented as of this encounter
--- OUTSIDE RECORDS SUMMARY | 2025-04-11 18:14 | XMS_ITS | Encounter Summary ---
Author Organization [facility] [place] [facility] Address [address] [place] [address] Care Team Providers Care Nut Processing Supervisor Name Role Phone Jewell Chacon MD Primary Care Provider Unavailab Rita Rice MD Primary Care Provider [phone] Encounter Details Date Type Department Care Team Description 07/20/2019 Release of Information Medical Records [address] [place] [address] Abstract, Provider Social History Tobacco Use Types Packs/Day Years [...] on filedocumented in this encounter Care Teams Nut Processing Supervisor Relationship Specialty Start Date End Date Jewell Chacon MD PCP - General 11/09/06 12/05/23 Rita Campbell MD [address] [place] [address] PCP - General Internal Medicine 12/06/23 documented as of this encounter
--- OUTSIDE RECORDS SUMMARY | 2025-04-11 18:14 | XMS_ITS | Encounter Summary ---
Author Organization [facility] Address [address] [place] [address] Care Team Providers Care Loading Supervisor Name Role Phone Jewell Chacon MD Primary Care Provider Unavailab Rita Rice MD Primary Care Provider [phone] Encounter Details Date Type Department Care Team Description 08/25/2022 Foundry Molder Report Medical Records [address] [place] [address] [employer] Social History Tobacco Use Types Packs/Day Years Used Date Smoking Tobacco: Never Smokeless Tobacco: Never Comments:mom and dad smoke o riside Alcohol Use Standard Drinks/Week Comments No 0 (1 standard drink = 0.6 oz pur e alcohol) Sex Assigned at Date Recorded Not on file documented as of this encounter Plan of Treatment Not on file documented as of this encounter Visit Diagnoses Not on filedocumented in this encounter Care Teams Loading Supervisor Relationship Specialty Start Date End Date Jewell Chacon MD PCP - General 11/09/06 12/05/23 Rita Campbell MD [address] [place] [address] PCP - General Internal Medicine 12/06/23 documented as of this encounter
--- OUTSIDE RECORDS SUMMARY | 2025-04-11 18:14 | XMS_ITS | Encounter Summary ---
Author Organization [facility] Address [address] [facility] [place] [address] Care Team Providers Care Billet Checker Name Role Phone Jewell Chacon MD Primary Care Provider Unavailab Rita Rice MD Primary Care Provider [phone] Reason for Visit * Reason Comments E-prescribe Rx Request Encounter Details Date Type Department Care Team Description 09/15/2015 Refill Pediatrics - [address] [address] Erin Webb NP E-prescribe Rx Request Social History Tobacco Use Types Packs/Day Years Used Date Smoking Tobacco: Never Smokeless Tobacco: Never Comments:mom and dad smoke o utside Alcohol Use Standard Drinks/Week Comments Not Asked 0 (1 standard drink = 0.6 oz pur e alcohol) Sex Assigned at Date Recorded Not on file documented as of this encounter Miscellaneous Notes * Telephone Encounter - Jewell Chacon MD - 09/16/2015 10:19 AM EDT Needs wcc last pe 08/24/14 * Telephone Encounter - Remedios Gr - 09/15/2015 4:46 PM EDT When was patients last PE/WCC? 08/24/14 When is patients next PE/WCC scheduled? On w list Jewell Chacon RX REQUEST WHEN MED IS ON THE LIST: All of the medications requested were on the CURRENT MEDS list Did you check the Pharmacy information above?: YES Indicate how soon the patient needs the script: OK FOR NEXT DAY Patient would like script to be: E-PRESCRIBED/FAXED TO PHARMACY Is the doctor here today?: NO Can the message wait until the doctor returns?: YES Has the patient been told that the prescription will not be filled until the end of the day? NO Jewell Chacon Payor: [employer] FFS / Plan: FFS HMO $0 [place] [id number] / Product Type: MEDICAID RISK documented in this encounter Plan of Treatment Not on file documented as of this encounter Visit Diagnoses Not on filedocumented in this encounter Care Teams Billet Checker Relationship Specialty Start Date End Date Jewell Chacon MD PCP - General 11/09/06 12/05/23 Rita Campbell MD [address] [place] [address] PCP - General Internal Medicine 12/06/23 documented as of this encounter
--- OUTSIDE RECORDS SUMMARY | 2025-04-11 18:14 | XMS_ITS | Encounter Summary ---
Author Organization [facility] Address [address] [facility] [place] [address] Care Team Providers Care Paper Maker Name Role Phone Jewell Chacon MD Primary Care Provider Unavailab Rita Rice MD Primary Care Provider [phone] Reason for Visit * Reason Comments E-prescribe Rx Request Encounter Details Date Type Department Care Team Description 02/10/2015 Refill Pediatrics - [address] [place] [address] Jewell Chacon MD E-prescribe Rx Request Social History Tobacco Use Types Packs/Day Years Used Date Smoking Tobacco: Never Smokeless Tobacco: Never Comments:mom and dad smoke o utside Alcohol Use Standard Drinks/Week Comments Not Asked 0 (1 standard drink = 0.6 oz pur e alcohol) Sex Assigned at Date Recorded Not on file documented as of this encounter Miscellaneous Notes * Telephone Encounter - Jenelle Velasquez - 02/11/2015 12:35 PM EDT When was patients last PE/WCC? [id number] When is patients next PE/WCC scheduled? Wait listed Jewell Chacon RX REQUEST WHEN MED IS ON THE LIST: All of the medications requested were on the CURRENT MEDS list Did you check the Pharmacy information above?: YES Indicate how soon the patient needs the script: [facility] Patient would like script to be: E-PRESCRIBED/FAXED TO PHARMACY Is the doctor here today?: YES Can the message wait until the doctor returns?: NO Has the patient been told that the prescription will not be filled until the end of the day? NO Jewell Chacon Payor: [facility] FFS / Plan: FFS HMO $0 [place] [address] / Product Type: MEDICAID RISK documented in this encounter Plan of Treatment Not on file documented as of this encounter Visit Diagnoses Not on filedocumented in this encounter Care Teams Paper Maker Relationship Specialty Start Date End Date Jewell Chacon MD PCP - General 11/09/06 12/05/23 Rita Campbell MD [address] [place] [address] PCP - General Internal Medicine 12/06/23 documented as of this encounter
--- OUTSIDE RECORDS SUMMARY | 2025-04-11 18:14 | XMS_ITS | Encounter Summary ---
Author Organization [facility] Address [address] [place] [address] Care Team Providers Care Playground Aide Name Role Phone Jewell Chacon MD Primary Care Provider Unavailab Rita Rice MD Primary Care Provider Encounter Details Date Type Department Care Team Description 10/09/2022 Transfer Records Medical Records [address] [place] [address] Abstract, Provider Social History Tobacco Use Types [...] on filedocumented in this encounter Care Teams Playground Aide Relationship Specialty Start Date End Date Jewell Chacon MD PCP - General 11/09/06 12/05/23 Rita Campbell MD [address] [place] [address] PCP - General Internal Medicine 12/06/23 documented as of this encounter
--- OUTSIDE RECORDS SUMMARY | 2025-04-11 18:14 | XMS_ITS | Clinical Summary ---
Author Organization [facility] Address [address] [facility] [place] [facility] [place] [address] Care Team Providers Care Spool Winder Name Role Phone Rita Campbell MD Primary Care Provider [phone] Allergies No known active allergies Medications Medication Sig Dispensed Refills Start Date End Date Status sertraline (ZOLOFT) 50 MG tablet Take 1 Tablet by mouth daily. 90 Tablet 1 07/17/2024 Active Active Problems Problem Noted Date Right ureteral calculus 05/23/2019 Overview: 05/15/19: seen at [facility] pelvis and abdomen showed 0.3 cm calculus right pelvis given marcobid for proteus UTI and follow up with urology 07/17: renal ultrasound no hydronephrosis and no obvious sign of stone. 24 hour urine collection and nephrology Elevated cholesterol 02/26/2019 Depression 06/09/2018 Overview: Therapist Chaya Morales, [facility] [phone] 09/16: therapist Brigida Dean [facility] Behavior problem in child 04/01/2017 House dust mite allergy 08/30/2014 Overview: +RAST testing Orthostatic syncope 06/29/2013 Overview: seen by Dr. 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 Sleep apnea 11/08/2009 08/05/2011 Immunizations Name Administration Dates Next Due COVID-19 (Pfizer) 04/04/2021,03/21/2021 DTaP 07/04/2008, 4,2003,05/28,2003 Gardasil 9 (Hpv) 04/01/2017,01/23/2016, 5 HIB 09/16/2004, 3,2003,05/28 Hepatitis B-3 Dose (<19yrs) 2003, 3,2003 Influenza (> 6 Months) 08/23/2024,2019,09/21/2018,09/11,08/08/2012,07/25/2010,11/26/2009 Influenza (>6 Months) Split Preservative Free 09/12/2019,09/12/2016,10/21/2015,08/24 Influenza H1N1 Pandemic Flu Vaccine 11/26/2009 MMR (Srphsvb-Mxady-Xwickzi) 06/29/2007, 4 Meningococcal (Menactra) 09/12/2019,08/24/2014 Pneumococcal(Pedi) Conjugate PCV-7 09/16,2003,2003,05/28 Polio (IPV) 07/04/2008, 4,2003,05/28 Tdap 10/29/2022,08/24/2014 Varicella 06/29/2007,03/24/2004 Family History Medical History Relation Name Comments Kidney Stones Father polyarteritis nodosum Father Diabetes Maternal Grandfather CA Breast Maternal Grandmother Hypertension Maternal Grandmother Seizures Mother Asthma Other Maternal Side Relation Name Status Comments Brother Alive Father Alive Maternal Grandfather Maternal Grandmother Mother Alive Other Sister Alive Social History Tobacco Use Types Packs/Day Years Used Date Smoking Tobacco: Never Smokeless Tobacco: Never Tobacco Cessation:Counseling Given: Not Answered Comments:mom and dad smoke outsidePt vapes Alcohol Use Standard Drinks/Week Comments No 0 (1 standard drink = 0.6 oz pur e alcohol) Sex Assigned at Date Recorded Not on file Last Filed Vital Signs Vital Sign Reading Time Taken Comments Blood Pressure 110/76 08/23/2024 9:22 AM EDT Pulse 82 08/23/2024 9:22 AM EDT Temperature 36.2 ??C (97.2 ??F) 08/23/2024 9:22 AM ED T Respiratory Rate 14 08/23/2024 9:22 AM EDT Oxygen Saturation 99% 06/30/2024 2:26 PM EDT Inhaled Oxygen Concentration - - Weight 128.5 kg (283 lb 3.2 oz) 08/23/2024 9:22 AM EDT Height 182.2 cm (5' 11.75 ) 06/20/2024 8:17 AM E DT Body Mass Index 38.68 06/20/2024 8:17 AM EDT Plan of Treatment Health Maintenance Due Date Last Done Comments CERVICAL CANCER SCREENING 2024 Covid-19 Vaccine (2022-12 4 season) 2024 01/12/2023, 04/04/2021, 03/21/2021 BMI CHECK/ADVISE 11/29/2024 06/20/2024, (Completed), 09/12/2019, Additional history exists DEPRESSION SCREENING/FOLLOWUP 11/29/2024, 07/15/2024, 06/20/2024, Additional history exists SOCIAL NEEDS SCREENING 11/29/2024 06/20/2024, 2018 GONORRHEA & CHLAMYDIA SCREENING 06/23/2025 06/23/2024, 09/12/2019, 06/29/2019, Additional history exists BASELINE HEALTH EXAM 18-39 06/23/202906/23, 06/20/2024, 09/12/2019, Additional history exists CHOLESTEROL SCREENING 06/23/2029 06/23/2024 , 06/14/2018, 08/24/2014 DTAP/TDAP/TD (7 - Td or Tdap) 10/29/2032, 08/24/2014, 07/04/2008, Additional history exists PNEUMOCOCCAL VACCINE FOR HIG H RISK PATIENTS (#1) 2068 HUMAN PAPILLOMAVIRUS (HPV) Completed 04/01, 01/23/2016, 10/21/2015 INFLUENZA Completed 08/23/2024, 07/31, 09/12/2019, Additional history exists Care Teams Spool Winder Relationship Specialty Start Date End Date Rita Campbell MD [address] [place] [address] PCP - General Internal Medicine 12/06/23
--- OUTSIDE RECORDS SUMMARY | 2025-04-11 18:14 | XMS_ITS | Encounter Summary ---
Author Organization [facility] Address [address] [place] [address] Care Team Providers Care Securities Vault Supervisor Name Role Phone Jewell Chacon MD Primary Care Provider Unavail Rita Rice MD Primary Care Provider [phone] Encounter Details Date Type Department Care Team Description 11/06/2021 Refill Pediatrics - [address] [address] Jewell Chcaon MD Social History Tobacco Use Types Packs/Day Years Used Date Smoking Tobacco: Never Smokeless Tobacco: Never Comments:mom and dad smoke o utside Alcohol Use Standard Drinks/Week Comments No 0 (1 standard drink = 0.6 oz pur e alcohol) Sex Assigned at Date Recorded Not on file documented as of this encounter Miscellaneous Notes * Telephone Encounter - Jewell Chacon MD - 11/06/2021 2:07 PM EST Pt is overdue for physical. I refilled medications so she doesn't run out, but no further refills without being seen. Jewell Chacon MD documented in this encounter Plan of Treatment Not on file documented as of this encounter Visit Diagnoses Diagnosis Overweight for pediatric patient Overweight documented in this encounter Care Teams Securities Vault Supervisor Relationship Specialty Start Date End Date Jewell Chacon MD PCP - General 11/09/06 12/05/23 Rita Campbell MD [address] [place] [address] PCP - General Internal Medicine 12/06/23 documented as of this encounter
[2025-04-11 19:31] LABS: D Dimer High Sensitivity < 150 NG/ML
[2025-04-11 19:45] VITALS: BP 124/76; PULSE 81; RESP 16; TEMP 36.7; O2SAT 98
[2025-04-11] MEDS: dexAMETHasone 2 MG TABLET 10 MG PO (19:56)
[2025-04-11] MEDS: Ketorolac Tromethamine 15 MG/ML VIAL IM (19:57)
[2025-04-11 20:16] VITALS: BP 124/76; PULSE 81; RESP 16; TEMP 36.7; O2SAT 98
== END 2025-04-11 20:18 | disposition home or self-care (01) ==
PROVIDERS: Emergency Provider Emergency Medicine
DX: R07.89 Other chest pain (principal); I49.8 Other specified cardiac arrhythmias; R11.10 Vomiting, unspecified
CPT/HCPCS: 36415; 85379; 93005; 96372; 99284; 99285; J1885; J8540

== ENCOUNTER 2025-10-14 04:21 | Emergency (ER) | payer OTHER, SELFPAY ==
--- NOTE | 2025-10-14 | ECG_ITS ---
Test Reason : DIZZINESS Blood Pressure : */* mmHG Vent. Rate : 64 BPM Atrial Rate : 64 BPM P-R Int : 148 ms QRS Dur : 86 ms QT Int : 386 ms P-R-T Axes : 42 59 34 degrees QTcB Int : 398 ms Normal sinus rhythm with sinus arrhythmia Normal ECG When compared with ECG of 11-Apr-2025 17:04, No significant change was found Referred By: Generic ED Physician Electronically Signed By: JOVITA SMITH MD
[2025-10-14 04:30] VITALS: BP 121/59; PULSE 77; RESP 18; TEMP 37.1; O2SAT 98; BMI 44.1
--- OUTSIDE RECORDS SUMMARY | 2025-10-14 04:54 | XMS_ITS | Encounter Summary ---
Author Organization [facility] Address [address] [facility] [place] [address] Care Team Providers Care Educational Speech Language Clinician Name Role Phone Jewell Chacon MD Primary Care Provider Unavailab Rita Rice MD Primary Care Provider [phone] Reason for Visit * Reason Comments E-prescribe Rx Request Encounter Details Date Type Department Care Team Description 09/15/2015 Refill Pediatrics - [address] [address] Erin Webb NP E-prescribe Rx Request Social [...] of the day? NO Jewell Chacon Payor: [employer] FFS / Plan: FFS HMO $0 [place] [id number] / Product Type: MEDICAID RISK documented in this encounter Plan of Treatment Not on file documented as of this encounter Visit Diagnoses Not on filedocumented in this encounter Care Teams Educational Speech Language Clinician Relationship Specialty Start Date End Date Jewell Chacon MD PCP - General 11/09/06 12/05/23 Rita Campbell MD [address] [place] [id number] PCP - General Internal Medicine 12/06/23 documented as of this encounter
--- OUTSIDE RECORDS SUMMARY | 2025-10-14 04:54 | XMS_ITS | Encounter Summary ---
Author Organization [facility] Address [address] [facility] [place] [address] Care Team Providers Care Environmental Health Technologist Name Role Phone Jewell Chacon MD Primary Care Provider Unavailab Rita Rice MD Primary Care Provider [phone] Reason for Visit * Reason Comments E-prescribe Rx Request Encounter Details Date Type Department Care Team Description 07/15/2015 Refill Pediatrics - [address] [address] Jewell Chacon MD E-prescribe Rx Request Social [...] of the day? NO Jewell Chacon Payor: [employer] FFS / Plan: FFS HMO $0 [place] [id number] / Product Type: MEDICAID RISK documented in this encounter Plan of Treatment Not on file documented as of this encounter Visit Diagnoses Not on filedocumented in this encounter Care Teams Environmental Health Technologist Relationship Specialty Start Date End Date Jewell Chacon MD PCP - General 11/09/06 12/05/23 Rita Campbell MD [address] [place] [address] PCP - General Internal Medicine 12/06/23 documented as of this encounter
--- OUTSIDE RECORDS SUMMARY | 2025-10-14 04:54 | XMS_ITS | Encounter Summary ---
Author Organization [facility] Address [address] [facility] [place] [address] Care Team Providers Care Service Center Technician Name Role Phone Jewell Chacon MD Primary Care Provider Unavailab Rita Rice MD Primary Care Provider [phone] Reason for Visit * Reason Onset Date Comments Michael Smith 07/09/2013 Encounter Details Date Type Department Care Team Description 07/09/2013 Telephone Pediatrics Urgent Care [address] [place] [address] Jewell Chacon MD Fainting Spetara Social History Tobacco Use Types Packs/Day Years Used Date Smoking Tobacco: Never Smokeless Tobacco: Never Comments:mom and dad smoke o utside Alcohol Use Standard Drinks/Week Comments Not Asked 0 (1 standard drink = 0.6 oz pur e alcohol) Sex Assigned at Date Recorded Not on file documented as of this encounter Miscellaneous Notes * Telephone Encounter - Aylin Gilmore L.P.N. - 07/09/2013 3:12 PM EDT Left message on answering machine call susy, was sent to er by bsr * Telephone Encounter - Emily Grace - 07/09/2013 2:58 PM EDT Symptoms patient is presenting: passed out twice, lips are blue, pupils are dilated How long has patient had these symptoms?: just happened PCP: Jewell Chacon [facility] FFS Plan: FFS HMO $0 [id number] Product Type: MEDICAID RISK PATIENT WAS SENT TO ER documented in this encounter Plan of Treatment Not on file documented as of this encounter Visit Diagnoses Not on filedocumented in this encounter Care Teams Service Center Technician Relationship Specialty Start Date End Date Jewell Chacon MD PCP - General 11/09/06 12/05/23 Rita Campbell MD [address] [place] [id number] PCP - General Internal Medicine 12/06/23 documented as of this encounter
--- OUTSIDE RECORDS SUMMARY | 2025-10-14 04:54 | XMS_ITS | Clinical Summary ---
Author Organization [facility] Address [address] [facility] [place] [address] Care Team Providers Care Pot Tender Name Role Phone Rita Campbell MD Primary Care Provider [phone] Allergies No known active allergies Medications Medication Sig Dispensed Refills Start Date End Date Status sertraline (ZOLOFT) 50 MG tablet Take 1 Tablet by mouth daily. 90 Tablet 1 07/17/2024 Active Active Problems Problem Noted Date Right ureteral calculus 05/23/2019 Overview: 05/15/19: seen at [facility] pelvis and abdomen showed 0.3 cm calculus right pelvis given marcobid for proteus UTI and follow up with urology 07/17: renal ultrasound no hydronephrosis and no obvious sign of stone. 24 hour urine collection and nephrology Elevated cholesterol 02/26/2019 Depression 06/09/2018 Overview: Therapist Chaya Morales, [facility] [phone] 09/16: therapist Brigida Dean [facility] Behavior problem in child 04/01/2017 House dust [...] Influenza H1N1 Pandemic Flu Vaccine 11/26/2009 MMR ([id number]) 06/29/2007, 4 Meningococcal (Menactra) 09/12/2019,08/24/2014 Pneumococcal(Pedi) Conjugate [...] 82 08/23/2024 9:22 AM EDT Temperature 36.2 C (97.2 F) 08/23/2024 9:22 AM EDT Respiratory Rate 14 08/23/2024 9:22 AM EDT Oxygen Saturation 99% 06/30/2024 2:26 PM EDT Inhaled Oxygen Concentration - - Weight 128.5 kg (283 lb 3.2 oz) 08/23/2024 9:22 AM EDT Height 182.2 cm (5' 11.75 ) 06/20/2024 8:17 AM E DT Body Mass Index 38.68 06/20/2024 8:17 AM EDT Plan of Treatment Health Maintenance Due Date Last Done Comments CERVICAL CANCER SCREENING 2024 BMI CHECK/ADVISE 11/29/2024 06/20/2024, (Completed), 09/12/2019, Additional history exists DEPRESSION SCREENING/FOLLOWUP 11/29/2024, 07/15/2024, 06/20/2024, Additional history exists SOCIAL NEEDS SCREENING 11/29/2024 06/20/2024, 2018 GONORRHEA & CHLAMYDIA SCREENING 06/23/2025 06/23/2024, 09/12/2019, 06/29/2019, Additional history exists Covid-19 Vaccine (2022- 4 season) 2025 01/12/2023, 04/04/2021, 03/21/2021 INFLUENZA (#1) 2025 08/23/2024, 07/31, 09/12/2019, Additional history exists BASELINE HEALTH EXAM 18-39 06/23/202906/23, 06/20/2024, 09/12/2019, Additional history exists CHOLESTEROL SCREENING 06/23/2029 06/23/2024 , 06/14/2018, 08/24/2014 DTAP/TDAP/TD (7 - Td or Tdap) 10/29/2032, 08/24/2014, 07/04/2008, Additional history exists PNEUMOCOCCAL VACCINE FOR HIG H RISK PATIENTS (#1) 2068 HUMAN PAPILLOMAVIRUS (HPV) Completed 04/01, 01/23/2016, 10/21/2015 Care Teams Pot Tender Relationship Specialty Start Date End Date Rita Campbell MD [address] [place] [address] PCP - General Internal Medicine 12/06/23
--- OUTSIDE RECORDS SUMMARY | 2025-10-14 04:54 | XMS_ITS | Encounter Summary ---
Author Organization [facility] Address [address] [facility] [place] [address] Care Team Providers Care Bus Trolley And Taxi Instructor Name Role Phone Jewell Chacon MD Primary Care Provider Unavailab Rita Rice MD Primary Care Provider [phone] Encounter Details Date Type Department Care Team Description 03/23/2013 MyChart Proxy Form Medical Records [address] [place] [address] Abstract, Provider Social History Tobacco Use Types [...] on filedocumented in this encounter Care Teams Bus Trolley And Taxi Instructor Relationship Specialty Start Date End Date Jewell Chacon MD PCP - General 11/09/06 12/05/23 Rita Campbell MD [address] [place] [address] PCP - General Internal Medicine 12/06/23 documented as of this encounter
--- OUTSIDE RECORDS SUMMARY | 2025-10-14 04:54 | XMS_ITS | Encounter Summary ---
Author Organization [facility] Address [address] [place] [address] Care Team Providers Care Rubber Stamp Dies Inspector Name Role Phone Jewell Chacon MD Primary Care Provider Unavailab Rita Rice MD Primary Care Provider [phone] Reason for Visit * Reason Onset Date Comments Retail Pharmacist Feedback 07/12/[phone] Encounter Details Date Type Department Care Team Description 07/12/2013 Telephone Pediatrics - [address] [address] Jewell Chacon MD Retail Pharmacist Feedback ( [phone]) Social History Tobacco Use Types Packs/Day Years Used Date Smoking Tobacco: Never Smokeless Tobacco: Never Comments:mom and dad smoke o utside Alcohol Use Standard Drinks/Week Comments Not Asked 0 (1 standard drink = 0.6 oz pur e alcohol) Sex Assigned at Date Recorded Not on file documented as of this encounter Miscellaneous Notes * Telephone Encounter - Jewell Chacon MD - 07/17/2013 8:48 AM EDT Ok thank you * Telephone Encounter - Torie Goldstein - 07/17/2013 8:01 AM EDT Per letter sent on 07/11/2013, patient has been scheduled for their EEG at [facility] for this Sunday, July 21, 2013 at 9:30 AM. * Telephone Encounter - Jewell Chacon MD - 07/14/2013 6:20 PM EDT When is the eeg scheduled for? * Telephone Encounter - Karie Felton - 07/12/2013 12:26 PM EDT FYI to , you referred patient to see neurology within a 2-3 weeks priority, but the soonest I could schedule the patient for is August 09 2013 the office is putting the patient on a waitlist. If you feel patient needs to be seen sooner please call and speak with at [phone]. If appointment is acceptable please document and close encounter. A letter has been mailed to the patient with appointment information. If appointment is changed please contact the patient with new appointment information Thank you, Karie Referrals Coordinator [facility] Referrals Department . documented in this encounter Plan of Treatment Not on file documented as of this encounter Visit Diagnoses Not on filedocumented in this encounter Care Teams Rubber Stamp Dies Inspector Relationship Specialty Start Date End Date Jewell Chacon MD PCP - General 11/09/06 12/05/23 Rita Campbell MD [address] [place] [address] PCP - General Internal Medicine 12/06/23 documented as of this encounter
--- OUTSIDE RECORDS SUMMARY | 2025-10-14 04:55 | XMS_ITS | Encounter Summary ---
Author Organization [facility] Address [address] [place] [address] Care Team Providers Care Acetylene Torch Operator Name Role Phone Jewell Chacon MD Primary Care Provider Unavail Rita Rice MD Primary Care Provider [phone] Encounter Details Date Type Department Care Team Description 11/06/2021 Refill Pediatrics - [address] [address] Jewell Chacon MD Social History Tobacco Use Types Packs/Day [...] Overweight documented in this encounter Care Teams Acetylene Torch Operator Relationship Specialty Start Date End Date Jewell Chacon MD PCP - General 11/09/06 12/05/23 Rita Campbell MD [address] [place] [id number] PCP - General Internal Medicine 12/06/23 documented as of this encounter
--- OUTSIDE RECORDS SUMMARY | 2025-10-14 04:55 | XMS_ITS | Encounter Summary ---
Author Organization [facility] Address [address] [facility] [place] [address] Care Team Providers Care 8Th Grade Teacher Name Role Phone Jewell Chacon MD Primary Care Provider Unavailab Rita Rice MD Primary Care Provider [phone] Encounter Details Date Type Department Care Team Description 09/04/2019 Business Operations Specialist Report Medical Records [address] [place] [address] Lisa Ludwig MD Social History Tobacco Use Types Packs/Day [...] on filedocumented in this encounter Care Teams 8Th Grade Teacher Relationship Specialty Start Date End Date Jewell Chacon MD PCP - General 11/09/06 12/05/23 Rita Campbell MD [address] [place] [address] PCP - General Internal Medicine 12/06/23 documented as of this encounter
--- OUTSIDE RECORDS SUMMARY | 2025-10-14 04:55 | XMS_ITS | Clinical Summary ---
Author Organization [facility] Address [address] [place] [address] Phone Care Team Providers Care Hard Tile Setter Name Role Phone Unavailable Primary Care Provider [...] 2 - Standard) 2019 Influenza Vaccines (#1) 2025 COVID-19 Vaccine ( - season) 2025 Hepatitis B Vaccines Completed 2003, 2003, 2003 [...]
--- OUTSIDE RECORDS SUMMARY | 2025-10-14 04:55 | XMS_ITS | Encounter Summary ---
Author Organization [facility] Address [address] [facility] [place] [address] Care Team Providers Care Port Crane Operator Name Role Phone Jewell Chacon MD Primary Care Provider Unavail Rita Rice MD Primary Care Provider [phone] Reason for Visit * Reason Comments E-prescribe Rx Request Encounter Details Date Type Department Care Team Description 02/05/2022 Refill Pediatrics - [address] [address] Jewell Chacon MD E-prescribe Rx Request Social History Tobacco Use Types Packs/Day Years Used Date Smoking Tobacco: Never Smokeless Tobacco: Never Comments:mom and dad smoke o utside Alcohol Use Standard Drinks/Week Comments No 0 (1 standard drink = 0.6 oz pur e alcohol) Sex Assigned at Date Recorded Not on file documented as of this encounter Miscellaneous Notes * Telephone Encounter - Barbie Londono - 02/05/2022 10:43 AM EST When was patients last PE/WCC? 09/12/2019 When is patients next PE/WCC scheduled? 03/19/2022 Jewell Chacon RX REQUEST WHEN MED IS [...] of the day? NO Jewell Chacon Payor: [employer] [facility] FFS / Plan: [facility] ALLIANCE / Product Type: MEDICAID RISK documented in this encounter Plan of Treatment Not on file documented as of this encounter Visit Diagnoses Not on filedocumented in this encounter Care Teams Port Crane Operator Relationship Specialty Start Date End Date Jewell Chacon MD PCP - General 11/09/06 12/05/23 Rita Campbell MD [address] [place] [id number] PCP - General Internal Medicine 12/06/23 documented as of this encounter
--- OUTSIDE RECORDS SUMMARY | 2025-10-14 04:55 | XMS_ITS | Clinical Summary ---
Author Organization [address] Address [address] [place] [address] Phone Care Team Providers Care Guide Excursion Name Role Phone Rita Campbell MD Primary Care Provider [phone] Allergies No known active allergies Medications sertraline (ZOLOFT) 50 mg tablet TAKE 1 TABLET BY MOUTH EVERY DAY 90 tablet 07/24/2025 Active Active Problems Problem Noted Date Diagnosed Date Right ureteral calculus 05/23/2019 Overview (02/04/2024): 05/15/19: seen at [facility] pelvis and abdomen showed 0.3 cm calculus right pelvis given marcobid for proteus UTI and follow up with urology 07/17: renal ultrasound no hydronephrosis and no obvious sign of stone. 24 hour urine collection and nephrology Elevated cholesterol 02/26/2019 Major depressive disorder 06/09/2018 Overview (02/04/2024): Therapist Chaya Morales [facility] [phone] 09/16: therapist fernandez Berg Behavior problem in child 04/01/2017 Orthostatic syncope 06/29/2013 Overview (02/04/2024): seen by Dr. Sanchez, cardiology Seasonal allergies 03/18/2012 Overview (02/04/2024): Last Assessment & Plan: Will start on Claritin and Flomarcelluse Encounters Date Type Department Care Team Description 08/03/2025 Telephone Adult Medicine [address] [address] Rita Campbell MD from Last 3 Months Immunizations Immunization Administration Dates Next Due DTaP (Infanrix) 6wks to less than 7yo ,09/16/2004,2003,05/28,2003 DTaP 5 pertussis antigens, D iptheria Tetanus acellular pertussis (Daptacel) 6wks to less than 7yo 09/16/2004,2003,2003,05/28 [id number] (Pentacel) 2mo to less than 5yo 09/16/2004,2003,2003,05/28 [...] Sign Reading Time Taken Comments Blood Pressure 110/78 04/17/2025 9:59 AM EDT Pulse 80 04/17/2025 9:59 AM EDT Temperature 36.5 C (97.7 F) 04/17/2025 9:59 AM EDT Respiratory Rate 14 04/17/2025 9:59 AM EDT Oxygen Saturation 98% 01/26/2025 9:34 AM EST Inhaled Oxygen Concentration - - Weight 134 kg (294 lb 9.6 oz) 04/17/2025 9:59 AM EDT Height 182.9 cm (6') 04/17/2025 9:59 AM EDT Body Mass Index 39.95 04/17/2025 9:59 AM EDT Plan of Treatment Upcoming Encounters Date Type Department Care Team ([facility] st Contact Info) Description 11/07/2025 8:30 AM EST Consult Bariatric Surgery - [address] [place] [address] Tonya Alvarez PA [address] [place] [phone] Health Maintenance Due Date Last Done Comments Meningococcal B Vaccine (1 of 2 - Standard) 2019 Gonorrhea/Chlamydia Screening 09/12/2020 09/12/2019 HIV Screening 11/01/2022 Hepatitis C Screening 11/01/2022 Social Influencers of Health Screening 11/01/2022 09/12/2019 Cervical Cancer Screening: Pap Smear 2024 Depression Screening 11/29/2024 Hypertension/CHF/CAD Annual BMP Blood Test 06/23/2025 06/23/2024 COVID-19 Vaccine ( - season) 2025 01/12/2023, 04/04/2021, 03/21/2021 Influenza Vaccine (#1) 2025 , 10/29/2022, 08/19/2020, Additional history exists Cholesterol Screening (Lipid Panel) 06/23/2029 06/23/2024, 06/14/2018 DTaP,Tdap,and Td Vaccines (8 - Td or Tdap) 10/29/2032 10/29/2022, 08/24/2014, 07/04/2008, Additional history exists RSV Immunization Adult Patients (1 - 1-dose 75+ series) 2078 Hepatitis B Vaccines Completed 2003, 2003, 2003 HIB Vaccines Completed 09/16/2004, 08/29, 07/02/2004, Additional history exists Pneumococcal Vaccine: Pediatrics (0 to 5 Years) and At-Risk Patients (6 to 49 Years) Completed 09/16/2004, 2003, 2003, Additional history exists MMR Vaccines Completed 06/29/2007, 03/24/2004 Varicella Vaccines Completed 06/29/2007, 03/24/2004 IPV Vaccines Completed 07/04/2008, 08/29, 2003, Additional history exists HPV Vaccines Completed 04/01/2017, 02/2017, 01/23/2016, Additional history exists Meningococcal ACWY Vaccine Completed 09/12/2019, Hepatitis A Vaccines Aged Out No long er eligible based on patient's age to complete this topic RSV Immunization Patients Under 20 months Aged Out No longer eligible based on patient's age to complete this topic Insurance [facility] PL[facility] Care Teams Guide Excursion Relationship Specialty Start Date End Date Rita Campbell MD [address] [place] [address] PCP - General 12/06/23
--- OUTSIDE RECORDS SUMMARY | 2025-10-14 04:55 | XMS_ITS | Encounter Summary ---
Author Organization [facility] Address [address] [place] [address] Phone Care Team Providers Care Seismograph Recorder Name Role Phone Unavailable Primary Care Provider Unavailabl e Encounter Details Date Type Department Care Team (Late st Contact Info) Description 07/15/2017 Conversion Encounter [facility] - [address] [address] Social History Tobacco Use Types Packs/Day Years [...]
--- OUTSIDE RECORDS SUMMARY | 2025-10-14 04:55 | XMS_ITS | Encounter Summary ---
Author Organization [facility] Address [address] [place] [address] Care Team Providers Care Transmitter Operator Name Role Phone Jewell Chacon MD Primary Care Provider Unavailab Rita Rice MD Primary Care Provider [phone] Reason for Visit * Reason Comments E-prescribe Rx Request Encounter Details Date Type Department Care Team Description 03/29/2018 Refill Pediatrics - [place] [address] [place] [address] Nunu Middleton NP [address] [place] [address] E-prescribe Rx Request Social History Tobacco Use [...] / Plan[place] / Product Type: MEDICAID [id number] documented in this encounter Plan of Treatment Not on file documented as of this encounter Visit Diagnoses Not on filedocumented in this encounter Care Teams Transmitter Operator Relationship Specialty Start Date End Date Jewell Chacon MD PCP - General 11/09/06 12/05/23 Rita Campbell MD [address] [place] [address] PCP - General Internal Medicine 12/06/23 documented as of this encounter
--- OUTSIDE RECORDS SUMMARY | 2025-10-14 04:55 | XMS_ITS ---
Author Name [facility] Organization Unknown Care Team Organization Name Specialty Phone Email Start Date End Da te [facility] Rita Campbell Primary Care 02/03/2023 024 [facility] Termed, PROVIDER Primary Care 10/06/202206/29
--- OUTSIDE RECORDS SUMMARY | 2025-10-14 04:55 | XMS_ITS | Encounter Summary ---
Author Organization [facility] Address [address] [place] [address] Care Team Providers Care Clothing Man Name Role Phone Jewell Chacon MD Primary Care Provider Unavailab Rita Rice MD Primary Care Provider [phone] Encounter Details Date Type Department Care Team Description 02/02/2011 [employer] Bus Driver Report Medical Records [address] [place] [address] Dustin Paulino MD Social History Tobacco Use Types Packs/Day [...] on filedocumented in this encounter Care Teams Clothing Man Relationship Specialty Start Date End Date Jewell Chacon MD PCP - General 11/09/06 12/05/23 Rita Campbell MD [address] [place] [address] PCP - General Internal Medicine 12/06/23 documented as of this encounter
--- OUTSIDE RECORDS SUMMARY | 2025-10-14 04:55 | XMS_ITS | Encounter Summary ---
Author Organization [facility] Address [address] [place] [address] Care Team Providers Care Bar Machine Operator Multiple Spindle Name Role Phone Jewell Chacon MD Primary Care Provider Unavailab Rita Rice MD Primary Care Provider [phone] Encounter Details Date Type Department Care Team Description 08/25/2022 Leather Goods I Assembler Report Medical Records [address] [place] [address] Carter Romi Social History Tobacco Use Types Packs/Day Years Used Date Smoking Tobacco: Never Smokeless Tobacco: Never Comments:mom and dad smoke o alside Alcohol Use Standard Drinks/Week Comments No 0 (1 standard drink = 0.6 oz pur e alcohol) Sex Assigned at Date Recorded Not on file documented as of this encounter Plan of Treatment Not on file documented as of this encounter Visit Diagnoses Not on filedocumented in this encounter Care Teams Bar Machine Operator Multiple Spindle Relationship Specialty Start Date End Date Jewell Chacon MD PCP - General 11/09/06 12/05/23 Rita Campbell MD [address] [place] [address] PCP - General Internal Medicine 12/06/23 documented as of this encounter
--- OUTSIDE RECORDS SUMMARY | 2025-10-14 04:55 | XMS_ITS | Encounter Summary ---
Author Organization [facility] Address [address] [facility] [place] [address] Care Team Providers Care Cardiac Tech Name Role Phone Jewell Chacon MD Primary Care Provider Unavail Rita Rice MD Primary Care Provider [phone] Encounter Details Date Type Department Care Team Description 09/16/2020 Telephone Pediatrics - [address] [address] Jewell Chacon MD Social History Tobacco Use Types Packs/Day Years Used Date Smoking Tobacco: Never Smokeless Tobacco: Never Comments:mom and dad smoke o utside Alcohol Use Standard Drinks/Week Comments No 0 (1 standard drink = 0.6 oz pur e alcohol) Sex Assigned at Date Recorded Not on file COVID-19 Exposure Response Date Recorded In the last month, have you been in contact with someone who was confirmed or suspected to have Coronavirus / COVID-19? No / Unsure 09/12/2020 9:47 AM EDT documented as of this encounter Miscellaneous Notes * Telephone Encounter - Jojo Espitia L.P.N. - 09/16/2020 10:36 AM EDT Left message on answering machine To return call when available [phone] * Telephone Encounter - Radha Young - 09/16/2020 9:33 AM EDT Patient returning call regarding urine culture/test results. Please advise documented in this encounter Plan of Treatment Not on file documented as of this encounter Visit Diagnoses Not on filedocumented in this encounter Care Teams Cardiac Tech Relationship Specialty Start Date End Date Jewell Chacon MD PCP - General 11/09/06 12/05/23 Rita Campbell MD [address] [place] [id number] PCP - General Internal Medicine 12/06/23 documented as of this encounter
--- NOTE | 2025-10-14 05:15 | ED.DIZZY ---
HPI - Dizziness General Chief Complaint: Dizziness Stated Complaint: Dizziness Time Seen by Provider: 10/14/25 04:55 Source: patient Mode of arrival: ambulatory Limitations: no limitations History of Present Illness ED Provider: Dr. Pratima Eisenberg HPI Narrative: Patient comes to the emergency room complaining of multiple episodes of dizziness. Patient describes the dizziness as episodes of everything spinning eventually feeling like she is going to pass out but does not. She had 3 episodes of dizziness yesterday. They self-resolved. This morning, when patient was getting ready to work, patient started having dizziness again, this time she had nausea and vomiting. Patient states that she has been sick with an URI for couple of weeks. Mostly stuffy nose. Patient states that this time she has no dizziness at all. However, she is concerned that she spontaneously gets dizziness. Patient states that she has not experienced any chest pain or chest pressure at all. No actual syncopal episodes he Related Data Previous Rx's ?Medication ?Instructions ?Recorded doxylamine succinate 25 mg tablet 25 mg PO BEDTIME PRN sleep #30 tabs 06/29/22 (Unisom (doxylamine)) pyridoxine (vitamin B6) 25 mg 25 mg PO TID #90 tabs 06/29/22 tablet vitamins with calcium 1 tab PO DAILY 90 days #90 tabs 07/13/22 no.72-iron 27 mg-folic acid 1 mg tablet ( Vitamins Plus Low Iron) aspirin 81 mg chewable tablet 162 mg (2 x 81 mg) PO DAILY #60 07/27/22 (Aspirin Childrens) tabs metronidazole 500 mg tablet 500 mg PO BID 7 days #14 tabs 08/14/22 blood sugar diagnostic (FreeStyle #150 ea 09/29/22 Lite Strips) lancets 28 gauge (FreeStyle #100 ea 09/29/22 Lancets) blood-glucose meter (FreeStyle #1 ea 10/08/22 [place] Lite kit) metronidazole 500 mg tablet 500 mg PO BID 7 days #14 tabs 10/19/22 methylprednisolone 4 mg tablets in 4 mg PO DAILY #21 ea 04/11/25 a dose pack (Medrol (Supa)) meclizine 25 mg tablet 25 mg PO TID PRN dizziness #15 tabs 10/14/25 Allergies Allergy/AdvReac Type Severity Reaction Status Date / Time No Known Allergies Allergy Verified 10/14/25 04:33 Review of Systems Review of Systems: Constitutional : No Weight loss, No Fever, No Chills, No Night Sweats, No Fatigue, No Malaise ENT/Mouth : No Hearing loss, No Ear Pain, No Nasal Congestion, No Sinus Pain, No Hoarseness, No sore throat, No Rhinorrhea, No Swallowing Difficulty Eyes: No Eye Pain, No Swelling, No Redness, No Foreign Body, No Discharge, No Vision Changes Cardiovascular : No Chest Pain, No SOB, No Dyspnea on Exertion, No Orthopnea, No Edema, No Palpitations Respiratory : No Cough, No Sputum, No Wheezing, No Smoke Exposure, No Dyspnea Gastrointestinal : No Nausea, No Vomiting, No Diarrhea, No Constipation, No abdominal Pain, No Hematochezia, No Melena Genitourinary : no irregular bleeding, No Dysuria, No Urinary Frequency, No Hematuria, No Urinary Incontinence, No Urgency, No Flank Pain, No Urinary Flow Changes, No Hesitancy Musculoskeletal : No joint pain, No Myalgias, No Joint Swelling Skin : No Skin Lesions, No rash Neuro : No Weakness, No Numbness, No Paresthesias, No Loss of Consciousness, complaining of dizziness with certain head movements, no headache Psych : No Anxiety/Panic, No Depression, No SI/HI/AH/VH, No Social Issues, Heme/Lymph: No Bruising, No Bleeding,No Lymphadenopathy Endocrine : No Polyuria, No Polydipsia, No Temperature Intolerance [facility] Past Medical History Medical History Obesity (BMI 30-39.9) Depression Family History Family History Mother Anxiety Father Vasculitis determined by biopsy of nerve Maternal Grandmother Breast cancer Uterine cancer Maternal Grandfather Cardiac arrest Hx of diabetes mellitus Sister Family history of malignant neoplasm of breast in relative diagnosed when older than 45 years of age Social History Social History Household Members: Family Alcohol intake: never Patient Tobacco Use Status: Never used Tobacco Advance Directives: No Advance Directives Information Provided: Yes Physical Exam Exam: Exam: Appearance: Alert. Oriented X3. No acute distress. Eyes: Pupils equal, round and reactive to light. No nystagmus ENT: Pharynx normal. Neck: Normal inspection. Neck supple. No lymph nodes noted. No crepitus CVS: Normal heart rate and rhythm. Pulses normal. Normal S1 and S2 Respiratory: No respiratory distress. Breath sounds normal. No Wheezing. No rales Abdomen: Soft and nontender. No rigidity. No distention. Skin: Skin warm and dry. Normal skin color. Normal skin turgor. Extremities: No lower extremity edema. No Lacerations. No Rash Neuro: Oriented X 3. No motor deficit. No sensory deficit. Moving all extremities. No slurred speech. CN 2 through 12 grossly intact Psych: calm, cooperative, normal affect Vital Signs: Vital Signs: Last Vital Signs Temp 98.7 F 10/14/25 04:30 Pulse 76 10/14/25 05:40 Resp 18 10/14/25 04:30 BP 118/68 10/14/25 05:40 Pulse Ox 98 10/14/25 04:30 O2 Del Method Room Air 10/14/25 04:30 BMI result Body Mass Index 44.1 Course Course Course Narrative: At this time, patient is asymptomatic. Patient reports dizziness with head movements, room spinning, it is possible that patient may have BPH. Also, patient has reports a recent URI infection. Medical Decision Making Medical Decision Making [facility] Narrative: My interpretation of EKG: Normal sinus rhythm, heart rate 86, no ST segment depression or elevation, no T-wave inversion, QTC 398 My interpretation of labs: No significant abnormality in patient's hematology and chemistry normal LFTs, troponin negative, hCG negative, serology negative for COVID flu Orthostatic vitals negative At this time patient is completely asymptomatic, patient has not had any episodes of dizziness. Given the patient's description of symptoms, patient likely has BPPV. Differential Diagnosis Differential Diagnoses: The differential diagnosis associated with the presentation includes (Vestibular neuritis, orthostatic hypotension, BPPV, less likely arrhythmia) Lab Data [facility] Lab Attestation statement: I reviewed the patient's lab results. 10/14/25 05:36 10/14/25 05:36 Labs: Lab Results 10/14/25 Range/Units 05:36 WBC 6.9 (4.8-10.8) X10*3/uL RBC 4.85 (4.20-5.50) X10*6/uL Hgb 11.9 L (12.0-16.0) g/dl Hct 38.1 (37.0-47.0) % MCV 78.6 L (80.0-98.0) fL MCH 24.5 L (27.0-33.0) pg MCHC 31.2 (31.0-35.0) g/dl RDW 14.8 (11.0-16.0) % Plt Count 362 (160-400) X10*3/uL MPV 10.0 (9.4-12.3) fL Immature Gran % (Auto) 0.3 (0.0-0.4) % Neut % (Auto) 61.3 (45-73) % Lymph % (Auto) 28.2 (20-40) % [place] % (Auto) 7.6 (2-11) % Eos % (Auto) 2.0 (0-4) % Baso % (Auto) 0.6 (0-2) % Lymph # (Auto) 1.9 (1.2-4.9) X10*3/uL [place] # (Auto) 0.5 (0.1-1.2) X10*3/uL Eos # (Auto) 0.1 (0.0-0.4) X10*3/uL Baso # (Auto) 0.0 (0.0-0.2) X10*3/uL Abs Immat Gran (auto) 0.02 (0.00-0.03) X10*3/uL Absolute Neuts (auto) 4.2 (2.0-8.3) x10*3/uL Absolute Nucleated RBC 0.000 (0.0-0.012) X10*3/uL Nucleated RBC % (auto) 0.0 (0.0-0.2) /100WBC Sodium 141 (135-145) mmol/L Potassium 3.6 (3.3-5.1) mmol/L Chloride 108 (96-108) mmol/L Carbon Dioxide 23 (22-29) mmol/L Anion Gap 14 (12-20) BUN 13 (9-16) mg/dL Creatinine 0.84 (0.5-1.4) mg/dL Estim Creat Clear Calc 155.6 Estimated GFR > 60 Random Glucose 97 (60-115) mg/dL Calcium 9.8 D (8.4-10.2) mg/dL Magnesium 2.1 (1.6-2.6) mg/dL Total Bilirubin 0.3 (0.0-1.0) mg/dL AST 20 (5-31) U/L ALT 14 (0-31) U/L Alkaline Phosphatase 87 (39-117) U/L Troponin I High Sens < 2.7 (<3.5-17.0) ng/L Total Protein 8.0 (6.5-8.0) g/dL Albumin 4.5 (3.5-5.0) g/dL Beta HCG, Quant < 2 mIU/mL COVID-19 (NATACHA) Negative (Negative) COVID-19 Clin Com See Note Influenza Type A (PATY) Negative (Negative) Influenza Type B (PATY) Negative (Negative) Influenza A & B Note See Note Independent Interpretation I performed an independent interpretation of an: EKG Tests considered The following testing was considered but not selected: I considered ordering a CT/CTA of the head and neck. However, patient arrived asymptomatic and remains asymptomatic, normal steady gait, unlikely that patient has a posterior CVA, intracranial abnormality or TIA Discharge Plan Discharge Clinical Impression: BPPV (benign paroxysmal positional vertigo) Patient Disposition: Home, Self-Care Instructions: Benign Paroxysmal Positional Vertigo (ED) Additional Instructions: Please follow-up with your primary care physician tomorrow. If you have any worsening or new symptoms, please return to the emergency room or call 911 Prescriptions: New meclizine 25 mg tablet 25 mg PO TID PRN (Reason: dizziness) Qty: 15 0RF No Action metronidazole 500 mg tablet 500 mg PO BID 7 Days Qty: 14 0RF Rx Instructions: Take with food, Avoid alcohol and vinegar products (DME) blood-glucose meter [FreeStyle [place] Lite] Kit See Rx Instructions .ROUTE .MEDSUPPLY Qty: 1 0RF Rx Instructions: use 4x day as directed metronidazole 500 mg tablet 500 mg PO BID 7 Days Qty: 14 0RF methylprednisolone [Medrol (Supa)] 4 mg tablets,dose pack 4 mg PO DAILY Qty: 21 0RF pyridoxine (vitamin B6) 25 mg tablet 25 mg PO TID Qty: 90 1RF Unisom (doxylamine) 25 mg tablet 25 mg PO BEDTIME PRN (Reason: sleep) Qty: 30 1RF Vitamin Plus Low Iron 27 mg iron- 1 mg tablet 1 tab PO DAILY 90 Days Qty: 90 2RF (DME) lancets [FreeStyle Lancets] 28 gauge misc See Rx Instructions .ROUTE .MEDSUPPLY Qty: 100 6RF Rx Instructions: four times as day (DME) FreeStyle Lite Strips Strip See Rx Instructions .ROUTE .MEDSUPPLY Qty: 150 6RF Rx Instructions: four times a day aspirin [Aspirin Childrens] 81 mg tablet,chewable 162 mg PO DAILY Qty: 60 7RF Rx Instructions: start 2 tabs daily at bedtime at 14-16weeks and continue daily until 2 weeks Stand Alone Forms: Work/School Release Print Language: Mohawk
[2025-10-14 05:39] VITALS: BP 109/61; BP 110/59; PULSE 57; PULSE 64
[2025-10-14 05:40] VITALS: BP 118/68; PULSE 76
[2025-10-14 05:41] LABS: MANUAL DIFF FLAG NO
[2025-10-14 05:42] LABS: Hematocrit 38.1 % (37.0-47.0); Hemoglobin 11.9 g/dl (12.0-16.0); Imm Gran Abs Auto 0.02 X10*3/uL (0.00-0.03); Imm Gran Pct Auto 0.3 % (0.0-0.4); Lymphocytes Absolute Auto 1.9 X10*3/uL (1.2-4.9); Mean Corpuscular HGB Conc 31.2 g/dl (31.0-35.0); Mean Corpuscular Hemoglobin 24.5 pg (27.0-33.0); Mean Corpuscular Volume 78.6 fL (80.0-98.0); NRBC Abs Auto 0.000 X10*3/uL (0.0-0.012); NRBC Pct Auto 0.0 /100WBC (0.0-0.2); Platelet Count 362 X10*3/uL (160-400); Red Blood Count 4.85 X10*6/uL (4.20-5.50); White Blood Count 6.9 X10*3/uL (4.8-10.8)
[2025-10-14 06:03] LABS: Alanine Aminotransferase 14 U/L (0-31); Albumin Level 4.5 g/dL (3.5-5.0); Alkaline Phosphatase 87 U/L (39-117); Anion Gap 14 (12-20); Aspartate Amino Transferase 20 U/L (5-31); Blood Urea Nitrogen 13 mg/dL (9-16); Calcium 9.8 mg/dL (8.4-10.2); Carbon Dioxide 23 mmol/L (22-29); Chloride 108 mmol/L (96-108); Creatinine Clr Calc Pharmacy 155.6; Estimated Glomerular Filt Rate > 60; Magnesium 2.1 mg/dL (1.6-2.6); Potassium 3.6 mmol/L (3.3-5.1); Sodium 141 mmol/L (135-145); Total Protein 8.0 g/dL (6.5-8.0)
[2025-10-14 06:05] LABS: COVID-19 Test Negative (Negative); IDNOW Serial# 152EDE1D; IDNOW Serial# 16C4AD1C; Influenza B2 Negative (Negative)
[2025-10-14 06:08] LABS: Troponin-I High Sensitivity < 2.7 ng/L (<3.5-17.0)
[2025-10-14 06:57] VITALS: BP 118/68; PULSE 76; RESP 16; TEMP 36.8; O2SAT 96
== END 2025-10-14 06:57 | disposition home or self-care (01) ==
PROVIDERS: Emergency Provider Emergency Medicine
DX: H81.10 Benign paroxysmal vertigo, unspecified ear (principal)
CPT/HCPCS: 36415; 80053; 83735; 84484; 84702; 85025; 87502; 87635; 93005; 99283

== ENCOUNTER → 2025-10-14 05:06 | Outpatient (BNV) | payer OTHER, SELFPAY | PROVIDERS: Emergency Provider Emergency Medicine; Visit Provider Internal Medicine Cardiovascular Disease | DX: R42 Dizziness and giddiness (principal) | CPT/HCPCS: 93010 ==